=== PATIENT | female | born 1965 | race Caucasian/White ===

== ENCOUNTER → 2018-02-08 09:26 | Outpatient (CLI) | payer OTHER, SELFPAY ==
--- NOTE | 2018-02-08 09:29 | DI.MG.S_ITS ---
UNILATERAL LEFT DIGITAL DIAGNOSTIC MAMMOGRAM 3D/2D SHORT-TERM FOLLOW-UP: 02/08/2018 CLINICAL: Patient returns for a 6 month follow up of the left breast. Bilateral augmentation. Family history of breast cancer. Comparison is made to exams dated: 05/25/2017 mammogram, 10/26/2014 mammogram, and 09/13/2010 mammogram - [facility]. The tissue of the left breast is heterogeneously dense. This may lower the sensitivity of mammography. There is a stable 1.2 cm oval mass with a circumscribed margin in the left breast at 2 o'clock middle depth. No other significant masses or calcifications are seen in the breast. IMPRESSION: INCOMPLETE: NEEDS ADDITIONAL IMAGING EVALUATION The stable 1.2 cm oval mass in the left breast is indeterminate. An ultrasound is recommended. This exam was interpreted at Station ID: [id number]. NOTE: For mammograms, a report in lay terms will be sent to the patient. Approximately 15% of breast malignancies will not be visualized mammographically. In the management of a palpable breast mass, a negative mammogram must not discourage biopsy of a clinically suspicious lesion. Electronically Signed By: Shara harding/:02/08/2018 10:37:10 letter sent: Additional Imaging Needed ACR BI-RADS Category 0: Incomplete 3340F
--- NOTE | 2018-02-08 09:29 | DI.US.S_ITS ---
PROCEDURE: US BREAST LT LIMITED COMPARISON: [facility], BREAST UNILATERAL LIMITED, 05/25/2017, 9:32. INDICATIONS: 6 MO F/U FINDINGS: IMPRESSION: Dictated by: Shara Bryant M.D. on 02/08/2018 at 10:51 Approved by: Shara Bryant M.D. on 02/08/2018 at 10:53
== END ==
PROVIDERS: Family Provider Internal Medicine; PCP Internal Medicine; Visit Provider Internal Medicine
DX: R92.8 Other abnormal and inconclusive findings on diagnostic imaging of breast (principal); N63.21 Unspecified lump in the left breast, upper outer quadrant; Z98.82 Breast implant status; Z80.3 Family history of malignant neoplasm of breast
CPT/HCPCS: 76642; 77065; G0279

== ENCOUNTER → 2018-05-03 11:51 | Outpatient (CLI) | payer OTHER, SELFPAY ==
[2018-05-03 12:46] LABS: Erythrocyte Sedimentation Rate 5 MM/HR (0-20)
[2018-05-03 13:19] LABS: Alanine Aminotransferase 31 IU/L (9-52); Albumin 4.3 g/dL (3.5-5.0); Albumin Globulin Ratio 1.5 (1.0-2.8); Alkaline Phosphatase 74 U/L (38-126); Aspartate Aminotransferase 22 IU/L (14-36); BUN Creatinine Ratio 16.3 (6-22); Bilirubin Total 0.5 mg/dL (0.2-1.3); Blood Urea Nitrogen 13 mg/dL (7-17); Calcium 9.6 mg/dL (8.4-10.2); Carbon Dioxide 26 mmol/L (22-32); Chloride 104 mmol/L (98-107); Cholesterol 212 mg/dL (140-199); Estimated Glomerular Filt Rate > 60.0 mL/min (>60); Globulin 2.8 g/dL (1.7-4.1); Glucose 91 mg/dL (70-100); HDL Cholesterol 56 mg/dL (40-60); HEMOLYSIS < 15 (0-50); LDL Cholesterol Calculated 142 mg/dL (<100); Potassium 5.3 mmol/L (3.4-5.1); Sodium 143 mmol/L (137-145); Total Protein 7.1 g/dL (6.3-8.2); Triglycerides 72 mg/dL (35-150)
[2018-05-03 13:21] LABS: C-Reactive Protein Quant < 0.5 mg/dL (<1.0); Rheumatoid Factor < 8.6 IU/mL (<12.0)
[2018-05-03 13:33] LABS: Free T4, Direct Thyroxine 1.09 ng/dL (0.78-2.19)
[2018-05-03 13:47] LABS: Thyroid Stimulating Hormone 1.19 uIU/mL (0.47-4.68)
== END ==
PROVIDERS: Family Provider Internal Medicine; PCP Internal Medicine; Visit Provider Internal Medicine
DX: I10 Essential (primary) hypertension (principal); Q13.2 Other congenital malformations of iris; M25.50 Pain in unspecified joint
CPT/HCPCS: 36415; 80053; 80061; 84439; 84443; 85651; 86140; 86430

== ENCOUNTER → 2018-08-23 08:25 | Outpatient (CLI) | payer OTHER, SELFPAY ==
--- NOTE | 2018-08-23 08:26 | DI.MG.S_ITS ---
BILATERAL DIGITAL DIAGNOSTIC MAMMOGRAM 3D/2D SHORT-TERM FOLLOW-UP WITH AUGMENTATION: 08/23/2018 CLINICAL: Patient returns for a 6 month follow up of the left breast. Due for bilateral imaging. Family history of breast cancer. Comparison is made to exams dated: 02/08/2018 ultrasound, 02/08/2018 mammogram, 08/21/2017 ultrasound, 05/25/2017 ultrasound, and 05/25/2017 mammogram - [facility]. The tissue of both breasts is heterogeneously dense. This may lower the sensitivity of mammography. There is a stable 1.2 cm oval mass with a circumscribed margin in the left breast at 2 o'clock middle depth. This correlates to area of tenderness. No other significant masses, calcifications, or other findings are seen in either breast. IMPRESSION: INCOMPLETE: NEEDS ADDITIONAL IMAGING EVALUATION The stable 1.2 cm oval mass in the left breast is indeterminate. A targeted ultrasound of the left breast is recommended and will be performed immediately following this exam. The implants have a stable appearance. This exam was interpreted at Station ID: [id number]. NOTE: For mammograms, a report in lay terms will be sent to the patient. Approximately 15% of breast malignancies will not be visualized mammographically. In the management of a palpable breast mass, a negative mammogram must not discourage biopsy of a clinically suspicious lesion. Electronically Signed By: Shara harding/:08/23/2018 09:06:27 letter sent: Additional Imaging Needed ACR BI-RADS Category 0: Incomplete 3340F
--- NOTE | 2018-08-23 08:26 | DI.US.S_ITS ---
ULTRASOUND OF LEFT BREAST: 08/23/2018 CLINICAL: 6 month follow-up mass. Comparison is made to exams dated: 08/23/2018 mammogram, 02/08/2018 ultrasound, 02/08/2018 mammogram, 08/21/2017 ultrasound, 05/25/2017 ultrasound, and 05/25/2017 mammogram - [facility]. Color flow ultrasound of the left breast was performed on the areas of interest. Richardson scale images of the real-time examination were reviewed. There is a stable 1 cm x 0.8 cm x 0.5 cm oval mass with a circumscribed margin in the left breast at 2 o'clock posterior depth 4 cm from the nipple. This oval mass is hypoechoic. This correlates with mammography and ultrasound findings. IMPRESSION: PROBABLY BENIGN The stable 1 cm x 0.8 cm x 0.5 cm oval mass in the left breast likely represents a fibroadenoma and is probably benign. A follow-up ultrasound in 6 months is recommended to demonstrate stability. There is no mammographic or sonographic abnormality seen in the left breast to correspond with the pain, however, clinical followup is recommended. This exam was interpreted at Station ID: [id number]. Electronically Signed By: Shara harding/:08/23/2018 14:51:06 letter sent: Followup Recommended Ultrasound BI-RADS: 3 Probably benign
== END ==
PROVIDERS: Family Provider Internal Medicine; PCP Internal Medicine; Visit Provider Internal Medicine
DX: R92.8 Other abnormal and inconclusive findings on diagnostic imaging of breast (principal); N63.21 Unspecified lump in the left breast, upper outer quadrant; Z80.3 Family history of malignant neoplasm of breast
CPT/HCPCS: 76642; 77066; G0279

== ENCOUNTER → 2018-10-05 12:17 | Outpatient (CLI) | payer OTHER, SELFPAY ==
--- NOTE | 2018-10-05 12:18 | DI.US.S_ITS ---
PROCEDURE: US PELVIC COMPLETE INDICATIONS: POST MENOPAUSAL BLEEDING TECHNIQUE: Real-time scanning was performed of the pelvic organs, with image documentation. Additional endovaginal scanning was necessary due to incomplete visualization of the adnexal and endometrial structures by transabdominal scanning. COMPARISON: [facility], , PELVIC COMPLETE, 12/27/2015, 9:49. FINDINGS: Transabdominal scanning: Limited scanning through the kidneys shows no hydronephrosis. No pathologic free abdominal or pelvic fluid. Endovaginal scanning: Uterus: Uterus is normal in size at 3.7 x 4.4 x 5.9 cm. The endometrium measures 6.3 mm in combined thickness. Ovaries: Well seen bilaterally measuring up to 3.1 x 3.9 x 4.4 cm on the right and 1.8 x 1.5 x 1.2 cm on the left. The right ovary is mildly enlarged by a complex cystic structure measuring up to 2.9 x 3.2 x 4.3 cm. This contains low-level internal echoes IMPRESSION: The uterus appears normal as does the right ovary. There is a moderately large left ovarian complex cyst containing low-level internal echoes throughout. This structure should be further assessed for resolution in 6-8 weeks by pelvic ultrasound. It measures up to 4.3 x 2.9 x 3.2 cm in maximal dimension. No abnormal endometrial mass or fluid collection found. Dictated by: Jose L Montes De Oca M.D. on 10/05/2018 at 14:11 Approved by: Jose L Montes De Oca M.D. on 10/05/2018 at 14:14
== END ==
PROVIDERS: Family Provider Specialist; PCP Internal Medicine; Visit Provider Internal Medicine
DX: N95.0 Postmenopausal bleeding (principal); N83.292 Other ovarian cyst, left side
CPT/HCPCS: 76830; 76856

== ENCOUNTER → 2018-10-25 09:09 | Outpatient (CLI) | payer OTHER, SELFPAY ==
[2018-10-25 11:07] LABS: Cancer Antigen 125 16 U/mL (0-35)
== END ==
PROVIDERS: PCP Internal Medicine; Visit Provider Specialist
DX: N83.291 Other ovarian cyst, right side (principal)
CPT/HCPCS: 36415; 86304

== ENCOUNTER → 2019-06-20 12:07 | Outpatient (CLI) | payer OTHER, SELFPAY ==
--- NOTE | 2019-06-20 12:09 | DI.RAD.S_ITS ---
PROCEDURE: XR SACRUM COCCYX MIN 2V INDICATIONS: Acute low back and coccyx discomfort after a fall TECHNIQUE: 3 views of the sacrum and coccyx acquired. COMPARISON: [facility], XR PELVIS W LATERAL HIP RT, 11/23/2015, 10:57. [facility], CR, XR LUMBAR SPINE 2-3V, 06/20/2019, 12:12. FINDINGS: Bones: There is cortical irregularity and lucency of the distal/inferior sacrum near the sacrococcygeal junction that is suspicious for a minimally displaced fracture of the distal/inferior sacrum, with posterior displacement of the distal fracture component. This best seen on lateral view. Soft tissues: Visualized bowel gas pattern is nonobstructive. IMPRESSION: Findings suspicious for a minimally displaced fracture of the distal/inferior sacrum, near the sacrococcygeal junction. Correlation with point tenderness suggested. Consider followup radiographs versus MRI if there is continued clinical concern. Dictated by: Dannie Mason M.D. on 06/20/2019 at 18:13 Approved by: Dannie Mason M.D. on 06/20/2019 at 18:20
--- NOTE | 2019-06-20 12:09 | DI.RAD.S_ITS ---
PROCEDURE: XR LUMBAR SPINE 2-3V INDICATIONS: Acute low back and coccyx discomfort after a fall TECHNIQUE: 3 views of the lumbar spine were acquired. COMPARISON: None. FINDINGS: Bones: No fracture or focal osseous destruction. Minimal diffuse disc space narrowing. Multilevel degenerative endplate sclerosis and spurring. Diffuse facet arthropathy. Trace retrolisthesis of L1 on L2, L2 on L3 and L3 on L4. Soft tissues: Overlying bowel gas pattern is normal. No suspicious soft tissue calcifications. IMPRESSION: Mild diffuse lumbar spondylosis and facet arthropathy No fracture Dictated by: Chong Jose M.D. on 06/20/2019 at 18:01 Approved by: Chong Jose M.D. on 06/20/2019 at 18:03
== END ==
PROVIDERS: PCP Internal Medicine; Visit Provider Family Medicine
DX: M54.5 Low back pain (principal); M47.816 Spondylosis without myelopathy or radiculopathy, lumbar region; M53.3 Sacrococcygeal disorders, not elsewhere classified
CPT/HCPCS: 72100; 72220

== ENCOUNTER → 2020-01-04 13:36 | Outpatient (CLI) | payer OTHER, SELFPAY ==
--- NOTE | 2020-01-04 13:37 | DI.MG.S_ITS ---
BILATERAL DIGITAL DIAGNOSTIC MAMMOGRAM 3D/2D SHORT-TERM FOLLOW-UP WITH AUGMENTATION: 01/04/2020 CLINICAL: Patient returns for a late short term follow up of the left breast, due for bilateral imaging. Comparison is made to exams dated: 08/23/2018 mammogram, 02/08/2018 mammogram, and 05/25/2017 mammogram - [facility]. The tissue of both breasts is heterogeneously dense. This may lower the sensitivity of mammography. There is a stable 1.2 cm oval mass with a circumscribed margin in the left breast at 2 o'clock posterior depth. No other significant masses, calcifications, or other findings are seen in either breast. IMPRESSION: INCOMPLETE: NEEDS ADDITIONAL IMAGING EVALUATION The stable 1.2 cm oval mass in the left breast is indeterminate. A targeted ultrasound of the left breast is recommended and will be performed immediately following this exam. The implants have a stable appearance. This exam was interpreted at Station ID: [id number]. NOTE: For mammograms, a report in lay terms will be sent to the patient. Approximately 15% of breast malignancies will not be visualized mammographically. In the management of a palpable breast mass, a negative mammogram must not discourage biopsy of a clinically suspicious lesion. Electronically Signed By: Shara Bryant M.D. lk/:01/04/2020 14:42:25 ACR BI-RADS Category 0: Incomplete 3340F
--- NOTE | 2020-01-04 13:37 | DI.US.S_ITS ---
ULTRASOUND OF LEFT BREAST: 01/04/2020 CLINICAL: 6 month follow-up. Comparison is made to exams dated: 01/04/2020 mammogram, 08/23/2018 ultrasound, 08/23/2018 mammogram, 02/08/2018 ultrasound, 02/08/2018 mammogram, and 08/21/2017 ultrasound - [facility]. Color flow ultrasound of the left breast was performed on the areas of interest. Richardson scale images of the real-time examination were reviewed. There is a 1 cm x 0.8 cm x 0.5 cm oval mass with a circumscribed margin in the left breast at 1 o'clock posterior depth 4 cm from the nipple which has remained unchanged in size for 24 months. This oval mass is hypoechoic. This correlates with mammography and ultrasound findings. Color flow imaging demonstrates that there is an adjacent vascularity. IMPRESSION: BENIGN There is no sonographic evidence of malignancy. The stable 1 cm x 0.8 cm x 0.5 cm oval mass in the left breast likely represents a fibroadenoma and is benign. A 1 year screening mammogram is recommended. This exam was interpreted at Station ID: [id number]. Electronically Signed By: Shara harding/:01/04/2020 14:43:54 letter sent: Normal Exam Ultrasound BI-RADS: 2 Benign
== END ==
PROVIDERS: PCP Internal Medicine; Referring Provider Internal Medicine; Visit Provider Internal Medicine
DX: R92.8 Other abnormal and inconclusive findings on diagnostic imaging of breast (principal); N63.21 Unspecified lump in the left breast, upper outer quadrant; Z98.82 Breast implant status
CPT/HCPCS: 76642; 77066; G0279

== ENCOUNTER → 2020-09-26 11:09 | Outpatient (CLI) | payer OTHER, SELFPAY ==
[2020-09-26] MEDS: COVID-19 VACC #1, MRNA(MOD) 100 MCG/0.5 ML VIAL IM (11:19)
== END ==
PROVIDERS: PCP Internal Medicine; Visit Provider Internal Medicine
DX: Z23 Encounter for immunization (principal)
CPT/HCPCS: 0011A; 91301

== ENCOUNTER → 2020-10-24 11:20 | Outpatient (CLI) | payer OTHER, SELFPAY ==
[2020-10-24] MEDS: COVID-19 VACC #2, MRNA(MOD) 100 MCG/0.5 ML VIAL IM (11:27)
== END ==
PROVIDERS: PCP Internal Medicine; Visit Provider Internal Medicine
DX: Z23 Encounter for immunization (principal)
CPT/HCPCS: 0012A; 91301

== ENCOUNTER → 2021-05-13 10:57 | Outpatient (CLI) | payer OTHER, SELFPAY ==
[2021-05-13 12:09] LABS: Alanine Aminotransferase 22 IU/L (<35); Albumin 4.1 g/dL (3.5-5.0); Albumin Globulin Ratio 1.5 (1.0-2.8); Alkaline Phosphatase 94 U/L (38-126); Aspartate Aminotransferase 28 IU/L (14-36); BUN Creatinine Ratio 18.9 (6-22); Bilirubin Total 0.5 mg/dL (0.2-1.3); Blood Urea Nitrogen 17 mg/dL (7-17); Calcium 9.5 mg/dL (8.4-10.2); Carbon Dioxide 27 mmol/L (22-32); Chloride 103 mmol/L (98-107); Cholesterol 212 mg/dL (140-199); Estimated Glomerular Filt Rate > 60.0 mL/min (>60); Globulin 2.7 g/dL (1.7-4.1); Glucose 87 mg/dL (70-100); HDL Cholesterol 56 mg/dL (40-60); HEMOLYSIS < 15 (0-50); LDL Cholesterol Calculated 145 mg/dL (<100); Potassium 4.5 mmol/L (3.4-5.1); Sodium 138 mmol/L (137-145); Total Protein 6.8 g/dL (6.3-8.2); Triglycerides 57 mg/dL (35-150)
== END ==
PROVIDERS: PCP Internal Medicine; Referring Provider Internal Medicine; Visit Provider Internal Medicine
DX: I10 Essential (primary) hypertension (principal); Z13.220 Encounter for screening for lipoid disorders
CPT/HCPCS: 36415; 80053; 80061

== ENCOUNTER → 2021-06-19 10:42 | Outpatient (CLI) | payer OTHER, SELFPAY ==
--- NOTE | 2021-06-19 | DI.MG.S_ITS ---
BILATERAL DIGITAL SCREENING MAMMOGRAM 3D/2D WITH CAD WITH AUGMENTATION: 06/19/2021 CLINICAL: Patient presents for routine screening. S/P bilateral augmentation. Comparison is made to exams dated: 01/04/2020 mammogram, 08/23/2018 ultrasound, 08/23/2018 mammogram, and 02/08/2018 mammogram - [facility]. The tissue of both breasts is heterogeneously dense. This may lower the sensitivity of mammography. Current study was also evaluated with a Computer Aided Detection (CAD) system. No significant masses, calcifications, or other findings are seen in either breast. There has been no significant interval change. IMPRESSION: NEGATIVE There is no mammographic evidence of malignancy. A 1 year screening mammogram is recommended. This exam was interpreted at Station ID: [id number]. NOTE: For mammograms, a report in lay terms will be sent to the patient. Approximately 15% of breast malignancies will not be visualized mammographically. In the management of a palpable breast mass, a negative mammogram must not discourage biopsy of a clinically suspicious lesion. Electronically Signed By: Leif Alberto M.D., jr/shannan:06/19/2021 12:57:31 letter sent: Normal Exam ACR BI-RADS Category 1: Negative [id number]
== END ==
PROVIDERS: PCP Internal Medicine; Referring Provider Internal Medicine; Visit Provider Internal Medicine
DX: Z12.31 Encounter for screening mammogram for malignant neoplasm of breast (principal); Z98.82 Breast implant status
CPT/HCPCS: 77063; 77067

== ENCOUNTER → 2021-10-31 09:53 | Outpatient (CLI) | payer OTHER, SELFPAY ==
[2021-10-31 11:08] LABS: Alanine Aminotransferase 15 IU/L (<35); Albumin 4.1 g/dL (3.5-5.0); Albumin Globulin Ratio 1.3 (1.0-2.8); Alkaline Phosphatase 85 U/L (38-126); Aspartate Aminotransferase 31 IU/L (14-36); BUN Creatinine Ratio 12.3 (6-22); Bilirubin Total 0.6 mg/dL (0.2-1.3); Blood Urea Nitrogen 10 mg/dL (7-17); Calcium 8.7 mg/dL (8.4-10.2); Carbon Dioxide 25 mmol/L (22-32); Chloride 108 mmol/L (98-107); Estimated Glomerular Filt Rate > 60 mL/min (>60); Globulin 3.1 g/dL (1.7-4.1); Glucose 97 mg/dL (70-100); HEMOLYSIS < 15 (0-50); Potassium 4.4 mmol/L (3.4-5.1); Sodium 139 mmol/L (137-145); Total Protein 7.2 g/dL (6.3-8.2)
== END ==
PROVIDERS: PCP Internal Medicine; Referring Provider Internal Medicine; Visit Provider Internal Medicine
DX: R10.11 Right upper quadrant pain (principal)
CPT/HCPCS: 36415; 80053

== ENCOUNTER → 2022-02-10 16:14 | Outpatient (CLI) | payer OTHER, SELFPAY ==
--- NOTE | 2022-02-10 16:16 | DI.RAD.S_ITS ---
PROCEDURE: XR RIBS RT MIN 3V W CXR 1V INDICATIONS: eval R rib pain TECHNIQUE: 2 views of the right ribs were acquired, along with a single view chest. COMPARISON: None. FINDINGS: Surgical changes and devices: None. Bones and chest wall: No fractures or dislocations. No suspicious bony lesions. Overlying soft tissues appear unremarkable. Lungs and pleura: No pleural effusions or pneumothorax. Lungs appear clear. Mediastinum: Mediastinal contours appear normal. Heart size is normal. IMPRESSION: No obvious displaced right rib fracture is seen. No acute cardiopulmonary pathology. Dictated by: Antonio Rizvi M.D. on 02/10/2022 at 16:49 Approved by: Antonio Rizvi M.D. on 02/10/2022 at 16:49
== END ==
PROVIDERS: PCP Internal Medicine; Referring Provider Registered Nurse Diabetes Educator; Visit Provider Registered Nurse Diabetes Educator
DX: R07.81 Pleurodynia (principal)
CPT/HCPCS: 71101

== ENCOUNTER 2022-05-28 07:56 | Emergency (ER) | payer OTHER, SELFPAY ==
[2022-05-28] VITALS (11 sets, daily range): BP systolic 152–155; BP diastolic 72–75; PULSE 56–80; RESP 18; TEMP 35.7; O2SAT 91–100; BMI 29.9
--- NOTE | 2022-05-28 08:08 | ED.GENADULT ---
HPI - General Adult General Chief complaint: Abdominal Pain Stated complaint: vomiting since 3 am bloody stools Time Seen by Provider: 05/28/22 08:01 Source: patient and family Mode of arrival: Ambulatory History of Present Illness HPI narrative: Patient is a 56-year-old female who is here for evaluation of approximately 6 hours of nausea, vomiting and diarrhea. She states she is having some blood in her stool. Has generalized abdominal tenderness. Symptoms came on suddenly at 0300 hours in the morning. No fevers. No recent travel. No recent antibiotics. No one else in the family having symptoms. No prior abdominal surgeries. She has had some issues with her gallbladder in the past and is scheduled to have an ultrasound but has not had that happen yet. Has not tried anything for the symptoms prior to arrival. Related Data Home Medications Medication Instructions Recorded Confirmed aspirin 81 mg tablet,delayed 81 mg PO DAILY 05/06/21 02/10/22 release (Adult Low Dose Aspirin) Previous Rx's Medication Instructions Recorded albuterol sulfate 90 mcg/actuation 1 puff inhalation Q4-6H PRN 03/23/18 aerosol inhaler shortness of breath or wheezing #8.5 grams CMP Estradiol 25mcg Vaginal Pearls 25 mcg vaginal .COMPLEX #45 ea 07/25/21 propranolol 80 mg capsule,24 80 mg PO QDAY #180 caps 08/26/21 hr,extended release progesterone micronized 200 mg 200 mg PO BEDTIME hormone 09/25/21 capsule replacement therapy #90 caps estradiol 0.025 mg/24 hr weekly 1 patch transdermal QWEEK #12 ea 10/31/21 transdermal patch paroxetine HCl 30 mg tablet 30 mg PO DAILY #90 tabs 04/17/22 ondansetron 4 mg disintegrating 4 mg PO Q6H PRN nausea and 05/28/22 tablet vomiting #14 tabs Allergies Allergy/AdvReac Type Severity Reaction Status Date / Time No Known Drug Allergies Allergy Verified 02/10/22 15:42 Review of Systems Constitutional Constitutional: Reports system reviewed and no additional complaints, except as documented Cardiovascular Cardiovascular: Reports system reviewed and no additional complaints, except as documented Respiratory Respiratory: Reports system reviewed and no additional complaints, except as documented Gastrointestinal Gastrointestinal: Reports system reviewed and no additional complaints, except as documented Genitourinary Genitourinary: Reports system reviewed and no additional complaints, except as documented Integumentary/Breasts Skin/Breast: Reports system reviewed and no additional complaints, except as documented Hematologic/Lymphatic On Anticoagulants: No Patient History Medical History Anxiety Body mass index (BMI) of 31.0 to 31.9 in adult (04/27/17) Congenital anisocoria Essential hypertension (05/13/16) Irregular menstrual cycle Major depression in complete remission Menopausal disorder Painful menstrual periods Surgical History Anesthesia History of breast augmentation (~2007) History of shoulder surgery (~2003) Family History Father Fam hx-ischem heart disease Mother Stroke Social History Smoking Status: Former smoker Smoking Status: Former smoker Exam Initial Vital Signs Initial Vital Signs: Vital Signs Temperature 96.2 F L 05/28/22 08:03 Pulse Rate 68 05/28/22 08:03 Respiratory Rate 18 05/28/22 08:03 Blood Pressure 152/72 H 05/28/22 08:03 Pulse Oximetry 100 05/28/22 08:03 Oxygen Delivery Method 05/28/22 08:03 Const General: cooperative and No ill appearing HENMT Head: normal to inspection and normocephalic Resp Effort & Inspection: normal respiratory effort Auscultation: clear to auscultation bilaterally Cardio Rate: regular rate Rhythm: regular rhythm GI Inspection: normal to inspection Palpation: soft, No firm, No guarding and tender Skin General: no rashes or lesions noted Neuro General: patient alert, patient awake and moves all extremities Extrem General: normal to inspection and capillary refill normal Course Orders Ordered: ED Orders 05/28/22 08:09 Complete Blood Count AUTO DIFF Stat Comprehensive Metabolic Panel Stat Lipase Stat Discontinued Medications Sodium Chloride (Normal Saline 0.9%) 1,000 mls @ 1,000 mls/hr IV BOLUS ONE Stop: 05/28/22 09:02 Last Infusion: 05/28/22 09:17 Dose: 0 mls/hr Documented By: Admin: 05/28/22 08:16 Dose: 1,000 mls/hr Documented By: BARBIE Sodium Chloride (Normal Saline 0.9%) 1,000 mls @ 1,000 mls/hr IV BOLUS ONE Stop: 05/28/22 10:41 Last Infusion: 05/28/22 11:23 Dose: 0 mls/hr Documented By: BARBIE(2) Admin: 05/28/22 09:48 Dose: 1,000 mls/hr Documented By: BARBIE(2) Lorazepam (Lorazepam 2 Mg/Ml Inj) 0.5 mg IV NOW ONE Stop: 05/28/22 10:27 Last Admin: 05/28/22 10:38 Dose: 0.5 mg Documented By: BARBIE Metoclopramide HCl (Metoclopramide 10 Mg/2 Ml Inj) 10 mg IV NOW ONE Stop: 05/28/22 09:42 Last Admin: 05/28/22 09:48 Dose: 10 mg Documented By: BARBIE(2) Ondansetron HCl (Ondansetron 4 Mg/2 Ml Inj) 4 mg IV NOW ONE Stop: 05/28/22 08:04 Last Admin: 05/28/22 08:16 Dose: 4 mg Documented By: BARBIE Ondansetron HCl (Ondansetron 4 Mg/2 Ml Inj) 4 mg IV NOW ONE Stop: 05/28/22 08:46 Last Admin: 05/28/22 09:05 Dose: 4 mg Documented By: BARBIE(2) Vital Signs Vital signs: Vital Signs - 8 hr 05/28/22 08:03 05/28/22 08:09 05/28/22 08:11 Temperature 96.2 F L Pulse Rate 68 61 59 L Respiratory Rate 18 Blood Pressure 152/72 H Pulse Oximetry 100 100 100 Oxygen Delivery Method Room Air 05/28/22 08:11 05/28/22 08:30 05/28/22 09:00 Temperature Pulse Rate 56 L 59 L Respiratory Rate Blood Pressure 155/75 H Pulse Oximetry 99 100 Oxygen Delivery Method 05/28/22 09:30 05/28/22 10:00 05/28/22 10:30 Temperature Pulse Rate 80 68 63 Respiratory Rate Blood Pressure Pulse Oximetry 91 100 99 Oxygen Delivery Method 05/28/22 11:00 Temperature Pulse Rate 57 L Respiratory Rate Blood Pressure Pulse Oximetry 98 Oxygen Delivery Method Medical Decision Making Lab Data Result diagrams: 05/28/22 08:09 05/28/22 08:09 Labs: Lab Results 05/28/22 05/28/22 Range/Units 08:09 08:09 WBC 12.4 H (4.5-11.0) X10^3/uL RBC 4.36 (4.0-5.2) X10^6/uL Hgb 13.7 (12.0-16.0) g/dL Hct 41.6 (36-46) % MCV 95.4 (80-100) fL MCH 31.5 (26-34) PG MCHC 33.0 (30-36) % RDW 12.8 (11.6-14.8) % Plt Count 254 (150-400) X10^3/uL Neut % (Auto) 83.0 H (50-75) % Lymph % (Auto) 14.5 L (25-40) % Hardin % (Auto) 1.7 L (3-14) % Eos % (Auto) 0.6 L (2-4) % Baso % (Auto) 0.2 (0-2) % Neut # (Auto) 19202 H (9367-3304) /uL Lymph # (Auto) 1800 (7891-5906) /uL Hardin # (Auto) 200 (0-900) /uL Eos # (Auto) 100 (0-450) /uL Baso # (Auto) 0 (0-100) /uL Sodium 138 (137-145) mmol/L Potassium 3.8 (3.4-5.1) mmol/L Chloride 107 (98-107) mmol/L Carbon Dioxide 20 L (22-32) mmol/L BUN 15 (7-17) mg/dL Creatinine 0.84 (0.52-1.04) mg/dL Estimated GFR > 60 (>60) mL/min BUN/Creatinine Ratio 17.9 (6-22) Glucose 148 H (70-100) mg/dL Calcium 9.1 (8.4-10.2) mg/dL Total Bilirubin 0.5 (0.2-1.3) mg/dL AST 23 (14-36) IU/L ALT 16 (<35) IU/L Alkaline Phosphatase 78 (38-126) U/L Total Protein 7.2 (6.3-8.2) g/dL Albumin 4.1 (3.5-5.0) g/dL Globulin 3.1 (1.7-4.1) g/dL Albumin/Globulin Ratio 1.3 (1.0-2.8) Lipase 58 (23-300) U/L MDM Narrative Medical decision making narrative: After fluids and multiple rounds of nausea medication she reports improvement of her symptoms. She states she would like to go home. She is had no diarrhea here in the ER. Has vomited a couple times. Did not want to try any ice chips before she was discharged. Feel that we should hold on any radiologic studies for now as I have a low suspicion for acute intra-abdominal surgical issue. No indication for antibiotics. She was given return precautions. She expressed understanding and agreement. Discharge Plan Departure Patient Disposition: Home Clinical Impression: Nausea vomiting and diarrhea Instructions: Diarrhea, Nausea and Vomiting-Adult Activity Restrictions/Additional Instructions: I do recommend that you continue to take all of your medications as directed. Be sure to increase your fluid intake by drinking small amounts over longer periods of time. Nausea medication was sent to [facility] per your request. Please use it as directed as needed. Return to the emergency department for any new or worsening symptoms. Prescriptions: New ondansetron 4 mg tablet,disintegrating 4 mg PO Q6H PRN (Reason: nausea and vomiting) Qty: 14 0RF No Action albuterol sulfate 90 mcg/actuation HFA aerosol inhaler 1 puff INHALATION Q4-6H PRN (Reason: shortness of breath or wheezing) Qty: 8.5 2RF CMP Estradiol 25mcg Vaginal Pearls 25 mcg vaginal .COMPLEX Qty: 45 3RF Rx Instructions: Insert 1 aliyah vaginally at bedtime for 14 nights, then 2 times weekly. propranolol 80 mg capsule,extended release 24 hr 80 mg PO QDAY Qty: 180 1RF estradiol 0.025 mg/24 hr patch weekly 1 patch transdermal QWEEK Qty: 12 3RF paroxetine HCl 30 mg tablet 30 mg PO DAILY Qty: 90 0RF Rx Instructions: APPT DUE W/PCP PRIOR TO END OF RX/FUTURE FILLS. PLEASE CALL TO SCHEDULE APPT. THANKS 04/17/22. aspirin [Adult Low Dose Aspirin] 81 mg tablet,delayed release (DR/EC) 81 mg PO DAILY progesterone micronized 200 mg capsule 200 mg PO BEDTIME Qty: 90 3RF Referrals: Macario Miranda MD [Primary Care Provider] -
[2022-05-28] MEDS: ONDANSETRON 4 MG/2 ML INJ IV ×2 (08:16→09:05)
[2022-05-28] MEDS: SODIUM CHLORIDE 0.9% 1,000 ML 1000 ML IV ×2 (08:16→09:48)
[2022-05-28 08:21] LABS: Add Manual Diff / Slide Review NO; Basophils Absolute Auto 0 /uL (0-100); Basophils Percent Auto 0.2 % (0-2); Eosinophils Absolute Auto 100 /uL (0-450); Eosinophils Percent Auto 0.6 % (2-4); Hematocrit 41.6 % (36-46); Hemoglobin 13.7 g/dL (12.0-16.0); Lymphocytes Absolute Auto 1800 /uL (1100-4500); Lymphocytes Percent Auto 14.5 % (25-40); Mean Corpuscular Hemoglobin 31.5 PG (26-34); Mean Corpuscular Volume 95.4 fL (80-100); Monocytes Absolute Auto 200 /uL (0-900); Monocytes Percent Auto 1.7 % (3-14); Neutrophils Absolute Auto 10300 /uL (1500-7000); Platelet Count 254 X10^3/uL (150-400); Red Blood Cell Count 4.36 X10^6/uL (4.0-5.2); Red Cell Distribution Width 12.8 % (11.6-14.8); White Blood Cell Count 12.4 X10^3/uL (4.5-11.0)
[2022-05-28 08:32] LABS: Alanine Aminotransferase 16 IU/L (<35); Albumin 4.1 g/dL (3.5-5.0); Albumin Globulin Ratio 1.3 (1.0-2.8); Alkaline Phosphatase 78 U/L (38-126); Aspartate Aminotransferase 23 IU/L (14-36); BUN Creatinine Ratio 17.9 (6-22); Bilirubin Total 0.5 mg/dL (0.2-1.3); Blood Urea Nitrogen 15 mg/dL (7-17); Calcium 9.1 mg/dL (8.4-10.2); Carbon Dioxide 20 mmol/L (22-32); Chloride 107 mmol/L (98-107); Estimated Glomerular Filt Rate > 60 mL/min (>60); Globulin 3.1 g/dL (1.7-4.1); Glucose 148 mg/dL (70-100); HEMOLYSIS < 15 (0-50); Lipase 58 U/L (23-300); Potassium 3.8 mmol/L (3.4-5.1); Sodium 138 mmol/L (137-145); Total Protein 7.2 g/dL (6.3-8.2)
[2022-05-28] MEDS: METOCLOPRAMIDE 10 MG/2 ML INJ IV (09:48)
[2022-05-28] MEDS: LORazepam 2 MG/ML INJ 0.5 MG IV (10:38)
== END 2022-05-28 11:54 | disposition home or self-care (01) ==
PROVIDERS: Emergency Provider Emergency Medicine; PCP Internal Medicine
DX: R11.2 Nausea with vomiting, unspecified (principal); R19.7 Diarrhea, unspecified
CPT/HCPCS: 36415; 80053; 83690; 85025; 96361; 96374; 96375; 96376; 99284; J2060; J2405; J2765

== ENCOUNTER → 2022-06-26 13:04 | Outpatient (CLI) | payer OTHER, SELFPAY ==
--- NOTE | 2022-06-26 13:05 | DI.US.S_ITS ---
PROCEDURE: US ABDOMEN COMPLETE INDICATIONS: ruq pain TECHNIQUE: Real-time scanning was performed of the abdominal and retroperitoneal organs, with image documentation. COMPARISON: [facility], CT, CT ABD PELVIS W CON, 03/28/2017, 4:25. [facility], US, ABDOMEN COMPLETE, 10/31/2009, 8:56. FINDINGS: Liver: The liver demonstrates normal size. The liver demonstrates generalized mildly increased echogenicity. This decreases ultrasound sensitivity for detection of hepatic masses. Gallbladder: No findings of gallstones or sludge are seen. The gallbladder wall is not thickened, measuring 3 mm or less. No specific pericholecystic fluid is seen. The sonographic Jung sign is negative. Biliary ducts: Intrahepatic bile ducts are non-dilated. Extrahepatic bile duct caliber measures 2 mm. Normal is 6-7 mm or less in diameter, or 10 mm or less post-cholecystectomy. Pancreas: Visualized portions of the pancreas are sonographically normal. Spleen: Spleen is normal in size and homogeneous in echotexture. Kidneys: Kidneys are normal in size and echotexture. Right kidney measures 10.7 cm long; left kidney measures 10.7 cm long. No hydronephrosis or nephrolithiasis. No solid masses. Aorta: Visualized aorta is normal in caliber at less than 3 cm. Iliacs: Proximal common iliac arteries are normal in caliber at less than 2.5 cm. IVC: Intrahepatic inferior vena cava is patent. Miscellaneous: No free abdominal fluid. IMPRESSION: The gallbladder demonstrates a normal sonographic appearance. No biliary dilatation is seen. Mild fatty liver infiltration. Dictated by: Srinivas Garcia M.D. on 06/26/2022 at 13:09 Approved by: Srinivas Garcia M.D. on 06/26/2022 at 13:10
== END ==
PROVIDERS: PCP Internal Medicine; Referring Provider Internal Medicine; Visit Provider Internal Medicine
DX: R10.11 Right upper quadrant pain (principal); K76.0 Fatty (change of) liver, not elsewhere classified
CPT/HCPCS: 76700

== ENCOUNTER → 2022-08-13 16:03 | Outpatient (CLI) | payer OTHER, SELFPAY ==
--- NOTE | 2022-08-13 16:04 | DI.MG.S_ITS ---
BILATERAL DIGITAL SCREENING MAMMOGRAM 3D/2D WITH CAD WITH AUGMENTATION: 08/13/2022 CLINICAL: Routine screening. Family history of breast cancer. Comparison is made to exams dated: 06/19/2021 mammogram, 01/04/2020 mammogram, and 08/23/2018 mammogram - [facility]. Both breasts are heterogeneously dense, which may obscure small masses (category c / 51-75% glandular tissue). Current study was also evaluated with a Computer Aided Detection (CAD) system. Bilateral breast implants are stable. There is a stable benign mass in the left breast. No significant masses, calcifications, or other findings are seen in either breast. There has been no significant interval change. IMPRESSION: BENIGN There is no mammographic evidence of malignancy. A 1 year screening mammogram is recommended. Based on the Tyrer Cuzick model (a risk assessment model) the patient's lifetime risk is 8.6% and her 10 year risk is 2.6%. According to the ACR, ACS, and NCCN guidelines, an annual breast MRI exam along with mammogram is recommended if the patient's lifetime risk is 20% or greater. This exam was interpreted at Station ID: [id number]. NOTE: For mammograms, a report in lay terms will be sent to the patient. Approximately 15% of breast malignancies will not be visualized mammographically. In the management of a palpable breast mass, a negative mammogram must not discourage biopsy of a clinically suspicious lesion. Electronically Signed By: Juan potts/shannan:08/14/2022 11:20:33 letter sent: Normal Exam ACR BI-RADS Category 2: Benign Finding(s) 3342F
== END ==
PROVIDERS: PCP Internal Medicine; Referring Provider Internal Medicine; Visit Provider Internal Medicine
DX: Z12.31 Encounter for screening mammogram for malignant neoplasm of breast (principal); Z80.3 Family history of malignant neoplasm of breast
CPT/HCPCS: 77063; 77067

== ENCOUNTER → 2022-10-08 08:37 | Outpatient (CLI) | payer OTHER, SELFPAY ==
[2022-10-08 10:14] LABS: Alanine Aminotransferase 19 IU/L (<35); Albumin 3.8 g/dL (3.5-5.0); Albumin Globulin Ratio 1.2 (1.0-2.8); Alkaline Phosphatase 86 U/L (38-126); Aspartate Aminotransferase 27 IU/L (14-36); BUN Creatinine Ratio 13.6 (6-22); Bilirubin Total 0.8 mg/dL (0.2-1.3); Blood Urea Nitrogen 9 mg/dL (7-17); Carbon Dioxide 20 mmol/L (22-32); Chloride 107 mmol/L (98-107); Cholesterol 212 mg/dL (140-199); Estimated Glomerular Filt Rate > 60 mL/min (>60); Globulin 3.1 g/dL (1.7-4.1); Glucose 94 mg/dL (70-100); HDL Cholesterol 39 mg/dL (40-60); HEMOLYSIS < 15 (0-50); LDL Cholesterol Calculated 155 mg/dL (<100); Potassium 4.3 mmol/L (3.4-5.1); Sodium 138 mmol/L (137-145); Total Protein 6.9 g/dL (6.3-8.2); Triglycerides 92 mg/dL (35-150)
== END ==
PROVIDERS: PCP Internal Medicine; Referring Provider Internal Medicine; Visit Provider Internal Medicine
DX: I10 Essential (primary) hypertension (principal); R73.9 Hyperglycemia, unspecified; K76.0 Fatty (change of) liver, not elsewhere classified
CPT/HCPCS: 36415; 80053; 80061; 83036

== ENCOUNTER → 2022-10-15 12:49 | Outpatient (CLI) | payer OTHER, SELFPAY ==
[2022-10-15 13:32] LABS: Add Manual Diff / Slide Review NO; Basophils Absolute Auto 100 /uL (0-100); Basophils Percent Auto 0.7 % (0-2); Eosinophils Absolute Auto 400 /uL (0-450); Eosinophils Percent Auto 4.4 % (2-4); Hematocrit 39.9 % (36-46); Hemoglobin 13.4 g/dL (12.0-16.0); Lymphocytes Absolute Auto 2800 /uL (1100-4500); Mean Corpuscular HGB Conc 33.7 % (30-36); Mean Corpuscular Hemoglobin 32.5 PG (26-34); Mean Corpuscular Volume 96.6 fL (80-100); Monocytes Absolute Auto 400 /uL (0-900); Monocytes Percent Auto 4.3 % (3-14); Neutrophils Absolute Auto 5100 /uL (1500-7000); Neutrophils Percent Auto 58.6 % (50-75); Platelet Count 279 X10^3/uL (150-400); Red Blood Cell Count 4.13 X10^6/uL (4.0-5.2); Red Cell Distribution Width 13.6 % (11.6-14.8); White Blood Cell Count 8.7 X10^3/uL (4.5-11.0)
[2022-10-15 14:24] LABS: TSH w/ Reflex to FT4 0.71 uIU/mL (0.47-4.68)
[2022-10-16 06:10] LABS: x Labcorp Estim. Avg Glu (eAG) 97 mg/dL (.)
== END ==
PROVIDERS: PCP Internal Medicine; Referring Provider Internal Medicine; Visit Provider Internal Medicine
DX: R63.4 Abnormal weight loss (principal); N95.0 Postmenopausal bleeding
CPT/HCPCS: 36415; 83036; 84443; 85025

== ENCOUNTER → 2022-10-22 11:16 | Outpatient (CLI) | payer OTHER, SELFPAY ==
[2022-10-22 12:54] LABS: Collection Time Urine 24 Hours; Creatinine 24 Hour Urine 1047 mg/day (800-1800); Creatinine Urine Random 44.6 mg/dL; Total Volume Urine 2348 mL
[2022-10-28 05:12] LABS: Normetanephrine Total 183 ug/24 hr (131-612); Urine, Metanephrine 64 ug/L (Undefined); Urine, Normetanephrine 78 ug/L (Undefined)
[2022-10-28 08:07] LABS: Creatinine, 24 Urine 895 mg/24 hr (800-1800); Creatinine,Urine 38.1 mg/dL (Not Estab.); Dopamine, Ur 24hr 232 ug/24 hr (0-510); Epinephrine, U 24hr 9 ug/24 hr (0-20); Norepinephrine Ur 24hr 31 ug/24 hr (0-135)
== END ==
PROVIDERS: PCP Internal Medicine; Referring Provider Internal Medicine; Visit Provider Internal Medicine
DX: R10.11 Right upper quadrant pain (principal)
CPT/HCPCS: 82384; 82570; 83497; 83835

== ENCOUNTER → 2022-10-23 09:46 | Outpatient (CLI) | payer OTHER, SELFPAY | PROVIDERS: PCP Internal Medicine; Referring Provider Internal Medicine; Visit Provider Internal Medicine | DX: R00.0 Tachycardia, unspecified (principal) | CPT/HCPCS: 93242 ==

== ENCOUNTER → 2022-11-06 10:32 | Outpatient (CLI) | payer OTHER, SELFPAY ==
--- NOTE | 2022-11-06 10:32 | DI.CT.S_ITS ---
PROCEDURE: CT ABDOMEN PELVIS W CON INDICATIONS: right upper quadrant pain TECHNIQUE: After the administration of oral and intravenous contrast, axial sections were acquired from the lung bases to the pubic symphysis. Coronal and sagittal reformats were performed. For radiation dose reduction, the following was used: automated exposure control, adjustment of mA and/or kV according to patient size. COMPARISON:[facility], CT, CT ABD PELVIS W CON, 03/28/2017, 4:25. [facility], US, US ABDOMEN COMPLETE, 06/26/2022, 13:25. FINDINGS: Lung bases: No pleural effusion. Partially imaged breast implants. ABDOMEN: Liver: Small hypodensity redemonstrated in segment 2 too small to characterize. Gallbladder: Unremarkable. Biliary ducts: Unremarkable. Pancreas: Unremarkable. Spleen: Unremarkable. Adrenal Glands: Unremarkable. Kidneys and Ureters: No hydronephrosis. Stomach and Bowel: No bowel obstruction. Mild predominantly sigmoid colonic diverticulosis without evidence of acute diverticulitis. No evidence of acute appendicitis. Peritoneum: No abnormal intraperitoneal fluid. No free air. Ventral Wall: Small fat containing periumbilical hernia. Abdominal Nodes: No retroperitoneal or mesenteric adenopathy by size criteria. Vessels: Aorta and inferior vena cava are normal in size. PELVIS: Pelvic Organs: Unremarkable CT appearance. Bladder: Unremarkable. Pelvic Nodes: No enlarged lymph nodes. Bones: Multilevel degenerative change of the visualized spine. IMPRESSION: No acute appearing abnormality identified within the abdomen or pelvis. Dictated by: Juan Dawson M.D. on 11/06/2022 at 16:55 Approved by: Juan Dawson M.D. on 11/06/2022 at 17:05
== END ==
PROVIDERS: PCP Internal Medicine; Referring Provider Internal Medicine; Visit Provider Internal Medicine
DX: K57.90 Diverticulosis of intestine, part unspecified, without perforation or abscess without bleeding (principal); K42.9 Umbilical hernia without obstruction or gangrene; R10.11 Right upper quadrant pain
CPT/HCPCS: 74177; Q9967

== ENCOUNTER → 2022-11-28 09:13 | Outpatient (CLI) | payer OTHER, SELFPAY ==
--- NOTE | 2022-11-28 09:13 | DI.ECHO.S_ITS ---
[facility]---------+ [facility] +---------+ : : [address] : : : : [id number] : : : : Phone: [phone] Echocardiogram Report + + :Name: JOSE CHAO Study Date: 11/28/2022 Height: 65 in : :[employer] ReadingLocation: Weight: 160 lb : : Gender: Female BSA: 1.8 m2 : :: 1965 Age: 57 yrs BP: 160/93 mmHg: :Reason For Study: Tachycardia : :Ordering Physician: Ruben. : :Aleja Performed By: Carolina Brown : :Referring: ALEJA MUÑOZ R : + + Interpretation Summary The study quality was technically difficult. The ejection fraction is estimated to be 60-65%. Diastolic parameters suggest probable normal left ventricular diastolic function and normal filling pressures. The right ventricular systolic function is normal. No significant valvular abnormality. Procedure: A two-dimensional transthoracic echocardiogram with color flow and Doppler was performed. The study quality was technically difficult. There is no prior echocardiogram noted for this patient. The patient was in normal sinus rhythm during the exam. Left Ventricle: The left ventricle is normal in size. The ejection fraction is estimated to be 60-65%. Diastolic parameters suggest probable normal left ventricular diastolic function and normal filling pressures. Right Ventricle: The right ventricle is normal size. The right ventricular systolic function is normal. Atria: The left atrial size is normal. Right atrial size is normal. There is no Doppler evidence for an interatrial shunt. Mitral Valve: The mitral valve leaflets appear borderline thickened, but open well. There is no mitral valve stenosis. There is no mitral regurgitation noted. Aortic Valve: The aortic valve is trileaflet. The aortic valve opens well. There is no aortic valve stenosis. No aortic regurgitation is present. Tricuspid Valve: The tricuspid valve is normal. There is no tricuspid stenosis. There is trace tricuspid regurgitation. Pulmonic Valve: The pulmonic valve leaflets are thin and pliable; valve motion is normal. There is no pulmonic valvular stenosis. There is no pulmonic valvular regurgitation. Great Vessels: The aortic root is normal size. The ascending aorta is normal in size. The pulmonary artery is normal size. The IVC is of normal diameter and collapses greater than 50% with a sniff. This suggests a low right atrial pressure of 3 mm Hg. Pericardium/ Pleura There is no pericardial effusion. There is no pleural effusion. MMode/2D Measurements & Calculations LVIDd: 4.0 cm LVOT diam: 2.0 cm LVIDs: 2.1 cm Ao root diam: 3.0 cm FS: 47.5 % asc Aorta Diam: 3.3 cm IVSd: 1.1 cm LVPWd: 1.0 cm LV goodman. diameter/BSA (cm/m^2): 2.2 LV sys. diameter/BSA (cm/m^2): 1.2 LA A2 area: 16.3 cm2 RA long axis: 4.0 cm LA A4 area: 14.8 cm2 RA area: 9.9 cm2 LA length (vol): 5.0 cm RA vol: 20.8 ml LA vol: 41.3 ml RA : 11.6 ml/m2 LA vol index: 22.9 ml/m2 RVD1 (basal): 3.4 cm LVLs ap4: 5.7 cm LVLd ap2: 6.7 cm TAPSE_phl: 2.0 cm LVLs ap2: 5.5 cm Doppler Measurements & Calculations Ao V2 max: 122.0 cm/sec LVOT Max Farshad: 102.0 cm/sec Ao V2 mean: 78.5 cm/sec LV V1 max P.2 mmHg Ao max P.0 mmHg LV V1 VTI: 19.1 cm Ao mean P.0 mmHg DUNG(I,D): 2.8 cm2 Ao V2 VTI: 21.1 cm DUNG(V,D): 2.6 cm2 sev ratio: 0.91 DUNG indexed to BSA (cm^2/m^2): 1.6 MV E max farshad: 78.3 cm/sec PA V2 max: 94.8 cm/sec MV A max farshad: 72.9 cm/sec PA V2 mean: 62.8 cm/sec MV E/A: 1.1 PA mean P.0 mmHg Med Peak E' Farshad: 8.6 cm/sec PA pr(Accel): 19.1 mmHg E/E' med: 9.1 Lat Peak E' Farshad: 11.2 cm/sec E/E' lat: 7.0 E/e' average: 8.0 MV dec time: 0.16 sec SV(LVOT): 60.0 ml AV VR_phl: 0.84 DUNG(VTI)/BSA_phl: 1.6 Reading Physician:PM
== END ==
PROVIDERS: PCP Internal Medicine; Referring Provider Internal Medicine; Visit Provider Internal Medicine
DX: R00.0 Tachycardia, unspecified (principal); R42 Dizziness and giddiness
CPT/HCPCS: 93306

== ENCOUNTER 2023-07-04 21:44 | Observation (INO) | payer OTHER, SELFPAY ==
[2023-07-04] VITALS (15 sets, daily range): BP systolic 93–159; BP diastolic 54–92; PULSE 65–150; RESP 10–27; TEMP 36.7; O2SAT 95–99; BMI 26.6
[2023-07-04] MEDS: dilTIAZem 5 MG/ML SDV 25 MG IV ×2 (22:37→23:00)
[2023-07-04] MEDS: SODIUM CHLORIDE 0.9% 1,000 ML 1000 ML IV (22:38)
[2023-07-05] VITALS (64 sets, daily range): BP systolic 84–128; BP diastolic 49–89; PULSE 53–152; RESP 0–46; TEMP 36.5–36.8; O2SAT 94–99; BMI 26.6
--- NOTE | 2023-07-05 00:18 | ED_ITS ---
HPI - Arrhythmia/Palpitations General Chief Complaint: Arrhythmia/Palpitations Stated Complaint: A-Fib, HR 140 Time Seen by Provider: 07/04/23 21:50 Source: patient and family Mode of arrival: Ambulatory History of Present Illness HPI narrative: 57-year-old female who presents with tachycardia/palpitations noted several hours prior to arrival. Patient reports that she does not have a history of atrial fibrillation but reports intermittent palpitations and elevated heart rate that have resolved spontaneously over the last year. No other complaints or associated symptoms noted. Patient reports being in her usual state of health prior to symptom onset. Patient arrives via private vehicle. Patient is ambulatory awake, alert, in no apparent distress and maintaining her own airway. Related Data Home Medications Medication Instructions Recorded Confirmed aspirin 81 mg tablet,delayed 81 mg PO DAILY 05/06/21 10/20/22 release (Adult Low Dose Aspirin) Previous Rx's Medication Instructions Recorded paroxetine HCl 30 mg tablet 30 mg PO DAILY #90 tabs 07/16/22 propranolol 80 mg capsule,24 80 mg PO QDAY #180 caps 08/18/22 hr,extended release progesterone micronized 200 mg See Rx Instructions .Route 09/04/22 capsule .COMPLEX #90 caps clonazepam 0.5 mg tablet 0.5 mg PO BID #60 tabs 10/28/22 estradiol 0.05 mg/24 hr weekly See Rx Instructions .Route 11/03/22 transdermal patch (Climara) .COMPLEX #12 patches albuterol sulfate 90 mcg/actuation 1 puff inhalation Q4-6H PRN 03/25/23 aerosol inhaler shortness of breath or wheezing #8.5 grams Allergies Allergy/AdvReac Type Severity Reaction Status Date / Time No Known Drug Allergies Allergy Verified 10/20/22 16:00 Review of Systems Review of Systems Narrative: See HPI for pertinent positives, otherwise review of systems negative Patient History Medical History Diverticular disease of colon Menopausal disorder Anxiety Painful menstrual periods Irregular menstrual cycle Body mass index (BMI) of 31.0 to 31.9 in adult (04/27/17) Essential hypertension (05/13/16) 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 Awake, alert, lying comfortably in bed during both exam and interview and in no apparent distress HEENT:? Normocephalic, atraumatic, pupils equal and reactive to light, trachea midline, neck is supple Chest:? Normal to inspection, no crepitus, no tenderness Cardiovascular:? 2+ radial bilaterally, irregularly irregular rhythm, tachycardia Pulmonary:? Regular respirations, no respiratory distress, lungs clear to auscultation bilateral Abdomen:? Soft, nondistended Back: ?No midline spinal tenderness, normal range of motion :? Exam deferred Skin:? Warm, dry, intact, no rashes Extremities:? No deformities of bilateral upper/lower extremities, non-tender Neuro:? No focal neurological deficits, moving all 4 extremities equally, normal gait, normal speech Psych:? Normal mood, normal affect normal attention Initial Vital Signs Initial Vital Signs: Vital Signs Temperature 98.1 F 07/04/23 21:49 Pulse Rate 65 07/04/23 21:49 Respiratory Rate 16 07/04/23 21:49 Blood Pressure 159/92 H 07/04/23 21:49 Pulse Oximetry 97 07/04/23 21:49 Oxygen Delivery Method Room Air 07/04/23 21:49 Course Course Course Narrative: See MDM Orders Ordered: ED Orders 07/04/23 21:50 EKG-12 Lead Stat 07/05/23 00:01 CBC Auto Diff [Complete Blood Count AUTO DIFF] Stat CMP [Comprehensive Metabolic Panel] Stat DILTIAZEM (Diltiazem 125 Mg/125 Ml-D5w) 125 mg in 125 mls @ 5 mls/hr IV TITRATE [place]; Protocol Last Admin: 07/05/23 04:12 Dose: 5 mg/hr, 5 mls/hr Documented By: SAUNDRA Discontinued Medications Acetaminophen (Acetaminophen 325 Mg Tablet) 650 mg PO NOW ONE Stop: 07/05/23 02:10 Last Admin: 07/05/23 02:10 Dose: 650 mg Documented By: SAUNDRA Diltiazem HCl (Diltiazem 5 Mg/Ml Sdv) 25 mg IV NOW ONE Stop: 07/04/23 22:20 Last Admin: 07/04/23 22:37 Dose: 25 mg Documented By: SAUNDRA Diltiazem HCl (Diltiazem 5 Mg/Ml Sdv) 25 mg IV NOW ONE Stop: 07/04/23 22:56 Last Admin: 07/04/23 23:00 Dose: 25 mg Documented By: SAUNDRA Diltiazem HCl (Diltiazem 5 Mg/Ml Sdv) 25 mg IV NOW ONE Stop: 07/05/23 00:28 Last Admin: 07/05/23 00:39 Dose: 25 mg Documented By: SAUNDRA Diltiazem HCl (Diltiazem 30 Mg Tablet) 60 mg PO NOW ONE Stop: 07/05/23 01:01 Last Admin: 07/05/23 02:04 Dose: 60 mg Documented By: SAUNDRA Sodium Chloride (Normal Saline 0.9%) 1,000 mls @ 1,000 mls/hr IV BOLUS ONE Stop: 07/04/23 23:35 Last Infusion: 07/04/23 22:57 Dose: Infused Documented By: Admin: 07/04/23 22:38 Dose: 1,000 mls/hr Documented By: SAUNDRA Sodium Chloride (Normal Saline 0.9%) 1,000 mls @ 1,000 mls/hr IV BOLUS ONE Stop: 07/05/23 00:13 Last Infusion: 07/05/23 02:08 Dose: Infused Documented By: Admin: 07/05/23 00:39 Dose: 1,000 mls/hr Documented By: SAUNDRA Ketorolac Tromethamine (Ketorolac 30 Mg/Ml Vial) 15 mg IV NOW ONE Stop: 07/05/23 03:35 Last Admin: 07/05/23 03:38 Dose: 15 mg Documented By: SAUNDRA Rivaroxaban (Rivaroxaban 10 Mg Tablet) 20 mg PO NOW ONE Stop: 07/05/23 03:09 Last Admin: 07/05/23 03:31 Dose: 20 mg Documented By: SAUNDRA Vital Signs Vital signs: Vital Signs - 8 hr 07/04/23 21:49 07/04/23 22:07 07/04/23 22:08 Temperature 98.1 F Pulse Rate 65 115 H Respiratory Rate 16 Blood Pressure 159/92 H 130/82 Pulse Oximetry 97 98 Oxygen Delivery Method Room Air 07/04/23 22:08 07/04/23 22:22 07/04/23 22:22 Temperature Pulse Rate 90 96 H Respiratory Rate 14 Blood Pressure 103/74 Pulse Oximetry 98 95 Oxygen Delivery Method 07/04/23 22:30 07/04/23 22:30 07/04/23 22:37 Temperature Pulse Rate 99 H 150 H Respiratory Rate 19 Blood Pressure 108/66 Pulse Oximetry 96 Oxygen Delivery Method 07/04/23 22:40 07/04/23 22:40 07/04/23 22:50 Temperature Pulse Rate 92 H Respiratory Rate 18 Blood Pressure 111/59 L 112/65 Pulse Oximetry 97 Oxygen Delivery Method 07/04/23 22:50 07/04/23 23:00 07/04/23 23:00 Temperature Pulse Rate 96 H 107 H 106 H Respiratory Rate 25 H 18 Blood Pressure 112/65 Pulse Oximetry 99 96 Oxygen Delivery Method 07/04/23 23:00 07/04/23 23:10 07/04/23 23:10 Temperature Pulse Rate 73 Respiratory Rate 21 Blood Pressure 109/72 100/60 Pulse Oximetry 96 Oxygen Delivery Method 07/04/23 23:20 07/04/23 23:20 07/04/23 23:30 Temperature Pulse Rate 72 83 Respiratory Rate 14 27 H Blood Pressure 96/59 L Pulse Oximetry 96 97 Oxygen Delivery Method 07/04/23 23:31 07/04/23 23:31 07/04/23 23:46 Temperature Pulse Rate 78 Respiratory Rate 20 Blood Pressure 93/60 99/54 L Pulse Oximetry 98 Oxygen Delivery Method 07/04/23 23:46 07/04/23 23:50 07/04/23 23:50 Temperature Pulse Rate 76 78 Respiratory Rate 10 L 12 Blood Pressure 107/56 L Pulse Oximetry 97 96 Oxygen Delivery Method 07/05/23 00:00 07/05/23 00:00 07/05/23 00:10 Temperature Pulse Rate 81 Respiratory Rate 22 Blood Pressure 97/58 L 84/51 L Pulse Oximetry 96 Oxygen Delivery Method 07/05/23 00:10 07/05/23 00:21 07/05/23 00:21 Temperature Pulse Rate 90 105 H Respiratory Rate 14 12 Blood Pressure 98/62 Pulse Oximetry 97 98 Oxygen Delivery Method 07/05/23 00:30 07/05/23 00:30 07/05/23 00:39 Temperature Pulse Rate 106 H 122 H Respiratory Rate 19 Blood Pressure 108/70 108/70 Pulse Oximetry 97 Oxygen Delivery Method 07/05/23 00:40 07/05/23 00:40 07/05/23 00:42 Temperature Pulse Rate 136 H Respiratory Rate 10 L Blood Pressure 88/58 L 96/60 Pulse Oximetry 97 Oxygen Delivery Method 07/05/23 00:42 07/05/23 00:50 07/05/23 00:50 Temperature Pulse Rate 129 H 57 L Respiratory Rate 13 16 Blood Pressure 96/55 L Pulse Oximetry 98 97 Oxygen Delivery Method 07/05/23 01:00 07/05/23 01:00 07/05/23 01:15 Temperature Pulse Rate 63 71 Respiratory Rate 16 15 Blood Pressure 91/66 Pulse Oximetry 98 99 Oxygen Delivery Method 07/05/23 01:15 07/05/23 01:26 07/05/23 01:26 Temperature Pulse Rate 64 Respiratory Rate 20 Blood Pressure 103/61 107/64 Pulse Oximetry 99 Oxygen Delivery Method 07/05/23 01:30 07/05/23 01:30 07/05/23 01:40 Temperature Pulse Rate 75 Respiratory Rate 14 Blood Pressure 97/59 L 84/56 L Pulse Oximetry 99 Oxygen Delivery Method 07/05/23 01:40 07/05/23 01:43 07/05/23 01:43 Temperature Pulse Rate 79 89 Respiratory Rate 16 14 Blood Pressure 87/52 L Pulse Oximetry 97 97 Oxygen Delivery Method 07/05/23 01:50 07/05/23 01:50 07/05/23 02:00 Temperature Pulse Rate 86 90 Respiratory Rate 17 22 Blood Pressure 98/56 L Pulse Oximetry 98 98 Oxygen Delivery Method 07/05/23 02:00 07/05/23 02:04 07/05/23 02:14 Temperature Pulse Rate 124 H Respiratory Rate Blood Pressure 97/54 L 97/64 120/58 L Pulse Oximetry Oxygen Delivery Method 07/05/23 02:14 07/05/23 02:21 07/05/23 02:21 Temperature Pulse Rate 87 87 Respiratory Rate 17 16 Blood Pressure 99/56 L Pulse Oximetry 98 98 Oxygen Delivery Method 07/05/23 02:30 07/05/23 02:30 07/05/23 02:40 Temperature Pulse Rate 89 119 H Respiratory Rate 24 19 Blood Pressure 87/49 L Pulse Oximetry 99 99 Oxygen Delivery Method 07/05/23 02:40 07/05/23 02:50 07/05/23 02:50 Temperature Pulse Rate 99 H Respiratory Rate 15 Blood Pressure 97/61 96/62 Pulse Oximetry 99 Oxygen Delivery Method 07/05/23 03:00 07/05/23 03:00 07/05/23 03:10 Temperature Pulse Rate 100 H 124 H Respiratory Rate 22 11 L Blood Pressure 100/69 Pulse Oximetry 98 99 Oxygen Delivery Method 07/05/23 03:10 07/05/23 03:20 07/05/23 03:20 Temperature Pulse Rate 115 H Respiratory Rate 12 Blood Pressure 106/61 108/60 Pulse Oximetry 98 Oxygen Delivery Method 07/05/23 03:30 07/05/23 03:33 07/05/23 03:33 Temperature Pulse Rate 84 97 H Respiratory Rate 14 Blood Pressure 112/75 Pulse Oximetry 98 99 Oxygen Delivery Method 07/05/23 03:40 07/05/23 03:40 07/05/23 03:50 Temperature Pulse Rate 92 H 96 H Respiratory Rate 12 15 Blood Pressure 106/72 Pulse Oximetry 97 98 Oxygen Delivery Method 07/05/23 03:50 07/05/23 04:00 07/05/23 04:01 Temperature Pulse Rate 98 H 96 H Respiratory Rate 9 L 16 Blood Pressure 95/72 Pulse Oximetry 97 97 Oxygen Delivery Method Room Air 07/05/23 04:01 07/05/23 04:11 07/05/23 04:11 Temperature Pulse Rate 105 H Respiratory Rate 17 Blood Pressure 102/71 110/71 Pulse Oximetry 98 Oxygen Delivery Method 07/05/23 04:20 07/05/23 04:20 07/05/23 04:30 Temperature Pulse Rate 107 H 111 H Respiratory Rate 17 10 L Blood Pressure 121/89 Pulse Oximetry 97 97 Oxygen Delivery Method 07/05/23 04:31 07/05/23 04:31 07/05/23 04:40 Temperature Pulse Rate 94 H 118 H Respiratory Rate 10 L 12 Blood Pressure 128/88 Pulse Oximetry 97 96 Oxygen Delivery Method 07/05/23 04:40 07/05/23 04:50 07/05/23 04:50 Temperature Pulse Rate 123 H Respiratory Rate 20 Blood Pressure 110/69 92/53 L Pulse Oximetry 95 Oxygen Delivery Method 07/05/23 05:00 07/05/23 05:06 07/05/23 05:06 Temperature Pulse Rate 114 H 141 H Respiratory Rate 46 H 12 Blood Pressure 99/59 L Pulse Oximetry 95 97 Oxygen Delivery Method MDM - Arrhythmia/Palpitations Differential Diagnosis Differential diagnosis: Likely palpitations, anxiety, sinus tachycardia, artial fibrillation, artial flutter, supraventricular tachycardia, ventricular tachycardia and WPW Lab Data Lab results narrative: Labs within normal limits/non actionable. 07/04/23 22:00 07/04/23 22:00 Labs: Lab Results 07/04/23 Range/Units 22:00 WBC 9.7 (4.5-11.0) X10^3/uL RBC 4.50 (4.0-5.2) X10^6/uL Hgb 14.4 (12.0-16.0) g/dL Hct 43.4 (36-46) % MCV 96.5 (80-100) fL MCH 31.9 (26-34) PG MCHC 33.1 (30-36) % RDW 12.7 (11.6-14.8) % Plt Count 277 (150-400) X10^3/uL Neut % (Auto) 54.0 (50-75) % Lymph % (Auto) 37.5 (25-40) % [place] % (Auto) 3.6 (3-14) % Eos % (Auto) 4.7 H (2-4) % Baso % (Auto) 0.2 (0-2) % Neut # (Auto) 5200 (5813-7645) /uL Lymph # (Auto) 3600 (0588-3883) /uL [place] # (Auto) 400 (0-900) /uL Eos # (Auto) 500 H (0-450) /uL Baso # (Auto) 0 (0-100) /uL Sodium 140 (137-145) mmol/L Potassium 4.5 (3.4-5.1) mmol/L Chloride 109 H (98-107) mmol/L Carbon Dioxide 20 L (22-32) mmol/L BUN 14 (7-17) mg/dL Creatinine 1.01 (0.52-1.04) mg/dL Estimated GFR > 60 (>60) mL/min BUN/Creatinine Ratio 13.9 (6-22) Glucose 87 (70-100) mg/dL Calcium 9.3 (8.4-10.2) mg/dL Total Bilirubin 0.5 (0.2-1.3) mg/dL AST 34 (14-36) IU/L ALT 18 (<35) IU/L Alkaline Phosphatase 55 (38-126) U/L Total Protein 7.3 (6.3-8.2) g/dL Albumin 4.1 (3.5-5.0) g/dL Globulin 3.2 (1.7-4.1) g/dL Albumin/Globulin Ratio 1.3 (1.0-2.8) ECG Data Interpretation: 07/04/2023 at 9:53 p.m. -atrial fibrillation with a rapid ventricular rate 149 beats per minute, normal axis, baseline wander, abnormal EKG MDM Narrative Medical decision making narrative: Patient presents with palpitations and history intermittent/self resolving palpitations/tachycardia in the past. Atrial fibrillation with rapid ventricular rate seen on monitor and EKG. Patient denies chest pain. Cardizem 25 mg bolus given with appropriate rate control. Atrial fibrillation remains. Two subsequent boluses of Cardizem given with final transitioned to oral Cardizem 60 mg PO. IV fluids given to sustain blood pressure during bolus administration. Patient reporting headache and request for Tylenol. Rate steadily rising despite boluses and p.o. Cardizem. Patient requesting ibuprofen for headache patient given Toradol with improvement in symptoms patient was also hoping that heart rate will go down after Toradol administration. Patient stable but warrants IV Cardizem gtt for rate control. Patient not cardioverted here in the emergency department due to reported history did sounds as if the patient has been experiencing paroxysmal atrial fibrillation in the past. Xarelto 20 mg p.o. given. Discussed case with admitting provider inpatient warrants ICU observation. Patient is stable at the time of transfer to the ICU here at [facility] Discharge Plan Departure Patient Disposition: Admitted as Observation Clinical Impression: Atrial fibrillation with rapid ventricular response Admit Date/Time: 07/05/23 05:22
[2023-07-05] MEDS: dilTIAZem 5 MG/ML SDV 25 MG IV (00:39)
[2023-07-05] MEDS: SODIUM CHLORIDE 0.9% 1,000 ML 1000 ML IV (00:39)
[2023-07-05] MEDS: dilTIAZem 30 MG TABLET 60 MG PO (02:04)
[2023-07-05] MEDS: ACETAMINOPHEN 325 MG TABLET 650 MG PO (02:10)
[2023-07-05] MEDS: RIVAROXABAN 10 MG TABLET 20 MG PO (03:31)
[2023-07-05] MEDS: KETOROLAC 30 MG/ML VIAL 15 MG IV (03:38)
[2023-07-05 03:59] LABS: Add Manual Diff / Slide Review NO; Basophils Absolute Auto 0 /uL (0-100); Basophils Percent Auto 0.2 % (0-2); Eosinophils Absolute Auto 500 /uL (0-450); Eosinophils Percent Auto 4.7 % (2-4); Hematocrit 43.4 % (36-46); Hemoglobin 14.4 g/dL (12.0-16.0); Lymphocytes Absolute Auto 3600 /uL (1100-4500); Lymphocytes Percent Auto 37.5 % (25-40); Mean Corpuscular HGB Conc 33.1 % (30-36); Mean Corpuscular Hemoglobin 31.9 PG (26-34); Mean Corpuscular Volume 96.5 fL (80-100); Monocytes Absolute Auto 400 /uL (0-900); Monocytes Percent Auto 3.6 % (3-14); Neutrophils Absolute Auto 5200 /uL (1500-7000); Platelet Count 277 X10^3/uL (150-400); Red Cell Distribution Width 12.7 % (11.6-14.8); White Blood Cell Count 9.7 X10^3/uL (4.5-11.0)
[2023-07-05 04:03] LABS: Alanine Aminotransferase 18 IU/L (<35); Albumin 4.1 g/dL (3.5-5.0); Albumin Globulin Ratio 1.3 (1.0-2.8); Alkaline Phosphatase 55 U/L (38-126); Aspartate Aminotransferase 34 IU/L (14-36); BUN Creatinine Ratio 13.9 (6-22); Bilirubin Total 0.5 mg/dL (0.2-1.3); Blood Urea Nitrogen 14 mg/dL (7-17); Calcium 9.3 mg/dL (8.4-10.2); Carbon Dioxide 20 mmol/L (22-32); Chloride 109 mmol/L (98-107); Estimated Glomerular Filt Rate > 60 mL/min (>60); Globulin 3.2 g/dL (1.7-4.1); Glucose 87 mg/dL (70-100); HEMOLYSIS 30 (0-50); Potassium 4.5 mmol/L (3.4-5.1); Sodium 140 mmol/L (137-145); Total Protein 7.3 g/dL (6.3-8.2)
[2023-07-05] MEDS: DILTIAZEM 125 MG/125 ML PIGGYBACK IV (04:12)
--- NOTE | 2023-07-05 08:46 | CM.DANOTE ---
Patient is a 57 yo female who was admitted on 07/05/23 for AFIB and HR issues. Pt has [employer] for insurance and her PCP is Dr. Macario Miranda. EMR was reviewed. Per MD, pt with new AFIB symptoms not converting and brought to the ICU and after Battery Charger Tester Consult the recommendation is transfer to higher level of care for DOLLY. community development specialist working on hospital transfer to [facility] for Cardiology. Per RN, pt is independent and active in the room and has supportive spouse bedside. Pt and spouse live in [place] and have local adult Dtr and pt works as an OB RN at [employer] and drives. No hx of admits to [facility]. Plan: SW to follow for plan of hospital transfer for higher level of Cardio needs. DARION Vieira
[2023-07-05 09:49] LABS: MRSA (Nasal) PCR Not Detected (Not Detect)
--- NOTE | 2023-07-05 10:06 | PM.HP.1 ---
History of Present Illness History of Present Illness Date Patient Seen: 07/05/23 Time Patient Seen: 08:15 Date of Onset of Symptoms: 07/04/23 Chief complaint: A-Fib, HR 140 Narrative: Patient presented last even with symptoms of heart racing and palpitations after eating a smoothie. She reports similar intermittent symptoms ongoing for the past 8-12 months. She reports illness in May 2022 and then feeling unwell for the next 3-6 months with 30 lb weight loss. She has been on propranolol for past 5 years for hypertension. She was prescribed anti-anxiety medication for palpitations and eventually referred to cardiology. She had an echo and wore a Zio patch. Results not available but she reports all normal. Her propranolol was switched from extended release to three times daily by cardiology. She had decrease in episodes of palpitations and has been doing okay since propranlol readjustment a few months ago. Last night she had a cold smoothie and then noticed symptoms of palpitations and that her heart was racing. She has an apple watch and heart rate was in the 140s and irregular. She tried to vomit to see if this would help symptoms but it did not. She previously worked as a labor and delivery nurse. She recognized that her pulse was irregular and that she was not anticoagulated so came in for evaluation. She is additionally complaining of headache and sinus pressure that has been ongoing for the past 2 weeks following a cold. Other medical history and medications include paxil for depression, estrogen patch and progesterone PO for HRT, prn albuterol inhaler for asthma and clonazepam PRN for anxiety. 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 Surgical History Anesthesia History of shoulder surgery (~2003) History of breast augmentation (~2007) Family History Father Fam hx-ischem heart disease Mother Stroke Social History household members: spouse and family Smoking Status: Former smoker alcohol intake: current Meds Home Medications and Allergies Home Medications Medication Instructions Recorded Confirmed Type aspirin 81 mg tablet,delayed 81 mg PO DAILY 05/06/21 07/05/23 History release (Adult Low Dose Aspirin) paroxetine HCl 30 mg tablet 30 mg PO DAILY #90 tabs 07/16/22 07/05/23 Rx propranolol 80 mg capsule,24 80 mg PO QDAY #180 caps 08/18/22 07/05/23 Rx hr,extended release progesterone micronized 200 mg See Rx Instructions .Route 09/04/22 07/05/23 Rx capsule .COMPLEX #90 caps clonazepam 0.5 mg tablet 0.5 mg PO BID #60 tabs 10/28/22 07/05/23 Rx estradiol 0.05 mg/24 hr weekly See Rx Instructions .Route 11/03/22 07/05/23 Rx transdermal patch (Climara) .COMPLEX #12 patches albuterol sulfate 90 mcg/actuation 1 puff inhalation Q4-6H PRN 03/25/23 07/05/23 Rx aerosol inhaler shortness of breath or wheezing #8.5 grams amoxicillin 875 mg-potassium 1 tab PO BID #14 tabs 07/05/23 Rx clavulanate 125 mg tablet Allergies Allergy/AdvReac Type Severity Reaction Status Date / Time No Known Drug Allergies Allergy Verified 10/20/22 16:00 Review of Systems Review of Systems Narrative: as per HPI Exam Vital Signs (past 8 hours): - 07/05/23 02:14 07/05/23 02:14 07/05/23 02:21 Temperature Pulse Rate 87 87 Respiratory Rate 17 16 Blood Pressure 120/58 L Pulse Oximetry 98 98 Oxygen Delivery Method Oxygen Flow Rate 07/05/23 02:21 07/05/23 02:30 07/05/23 02:30 Temperature Pulse Rate 89 Respiratory Rate 24 Blood Pressure 99/56 L 87/49 L Pulse Oximetry 99 Oxygen Delivery Method Oxygen Flow Rate 07/05/23 02:40 07/05/23 02:40 07/05/23 02:50 Temperature Pulse Rate 119 H Respiratory Rate 19 Blood Pressure 97/61 96/62 Pulse Oximetry 99 Oxygen Delivery Method Oxygen Flow Rate 07/05/23 02:50 07/05/23 03:00 07/05/23 03:00 Temperature Pulse Rate 99 H 100 H Respiratory Rate 15 22 Blood Pressure 100/69 Pulse Oximetry 99 98 Oxygen Delivery Method Oxygen Flow Rate 07/05/23 03:10 07/05/23 03:10 07/05/23 03:20 Temperature Pulse Rate 124 H Respiratory Rate 11 L Blood Pressure 106/61 108/60 Pulse Oximetry 99 Oxygen Delivery Method Oxygen Flow Rate 07/05/23 03:20 07/05/23 03:30 07/05/23 03:33 Temperature Pulse Rate 115 H 84 97 H Respiratory Rate 12 14 Blood Pressure Pulse Oximetry 98 98 99 Oxygen Delivery Method Oxygen Flow Rate 07/05/23 03:33 07/05/23 03:40 07/05/23 03:40 Temperature Pulse Rate 92 H Respiratory Rate 12 Blood Pressure 112/75 106/72 Pulse Oximetry 97 Oxygen Delivery Method Oxygen Flow Rate 07/05/23 03:50 07/05/23 03:50 07/05/23 04:00 Temperature Pulse Rate 96 H 98 H Respiratory Rate 15 9 L Blood Pressure 95/72 Pulse Oximetry 98 97 Oxygen Delivery Method Room Air Oxygen Flow Rate 07/05/23 04:01 07/05/23 04:01 07/05/23 04:11 Temperature Pulse Rate 96 H 105 H Respiratory Rate 16 17 Blood Pressure 102/71 Pulse Oximetry 97 98 Oxygen Delivery Method Oxygen Flow Rate 07/05/23 04:11 07/05/23 04:20 07/05/23 04:20 Temperature Pulse Rate 107 H Respiratory Rate 17 Blood Pressure 110/71 121/89 Pulse Oximetry 97 Oxygen Delivery Method Oxygen Flow Rate 07/05/23 04:30 07/05/23 04:31 07/05/23 04:31 Temperature Pulse Rate 111 H 94 H Respiratory Rate 10 L 10 L Blood Pressure 128/88 Pulse Oximetry 97 97 Oxygen Delivery Method Oxygen Flow Rate 07/05/23 04:40 07/05/23 04:40 07/05/23 04:50 Temperature Pulse Rate 118 H 123 H Respiratory Rate 12 20 Blood Pressure 110/69 Pulse Oximetry 96 95 Oxygen Delivery Method Oxygen Flow Rate 07/05/23 04:50 07/05/23 05:00 07/05/23 05:06 Temperature Pulse Rate 114 H 141 H Respiratory Rate 46 H 12 Blood Pressure 92/53 L Pulse Oximetry 95 97 Oxygen Delivery Method Oxygen Flow Rate 07/05/23 05:06 07/05/23 05:10 07/05/23 05:10 Temperature Pulse Rate 138 H Respiratory Rate 0 L Blood Pressure 99/59 L 107/66 Pulse Oximetry 97 Oxygen Delivery Method Oxygen Flow Rate 07/05/23 05:20 07/05/23 05:20 07/05/23 05:46 Temperature 98.0 F Pulse Rate 115 H 110 H Respiratory Rate 0 L 16 Blood Pressure 90/75 118/77 Pulse Oximetry 96 98 Oxygen Delivery Method Oxygen Flow Rate 0 07/05/23 06:09 07/05/23 08:00 07/05/23 09:28 Temperature 97.7 F Pulse Rate 53 L Respiratory Rate 16 Blood Pressure 118/77 Pulse Oximetry 96 Oxygen Delivery Method Room Air Room Air Oxygen Flow Rate Oxygen Delivery Method Room Air Oxygen Flow Rate 0 Const General: cooperative, healthy appearing, comfortable and diaphoretic Orientation: alert, awake and oriented x3 HENMT Head: normal to inspection Eyes General: appearance normal, both eyes and all related structures Neck Neck: normal visual inspection Resp Effort & Inspection: normal respiratory effort and able to speak in complete sentences Cardio Heart Sounds: S1 normal and S2 normal Other: Irregular rate noted Psych Appearance: grossly normal Mental Status: mental status grossly normal Speech and Movement: speech and movement normal Mood: congruent mood Affect: normal affect Attitude: cooperative Thought Process: normal Thought Content: normal Judgment: judgment good Objective Labs 07/04/23 22:00 07/04/23 22:00 Labs: Laboratory Results - last 24 hr 07/04/23 07/05/23 22:00 06:00 WBC 9.7 RBC 4.50 Hgb 14.4 Hct 43.4 MCV 96.5 MCH 31.9 MCHC 33.1 RDW 12.7 Plt Count 277 Neut % (Auto) 54.0 Lymph % (Auto) 37.5 [place] % (Auto) 3.6 Eos % (Auto) 4.7 H Baso % (Auto) 0.2 Neut # (Auto) 5200 Lymph # (Auto) 3600 [place] # (Auto) 400 Eos # (Auto) 500 H Baso # (Auto) 0 Sodium 140 Potassium 4.5 Chloride 109 H Carbon Dioxide 20 L BUN 14 Creatinine 1.01 Estimated GFR > 60 BUN/Creatinine Ratio 13.9 Glucose 87 Calcium 9.3 Total Bilirubin 0.5 AST 34 ALT 18 Alkaline Phosphatase 55 Total Protein 7.3 Albumin 4.1 Globulin 3.2 Albumin/Globulin Ratio 1.3 Nasal Screen MRSA (PCR) Not detected Assessment & Plan Assessment and plan (1) Atrial fibrillation with rapid ventricular response: Status: Acute (2) Acute sinusitis: Qualifiers: Sinusitis location: frontal Recurrence: non-recurrent Qualified Code(s): J01.10 - Acute frontal sinusitis, unspecified Status: Acute Plan 1. Atrial fibrillation with rapid ventricular response. DX with EKG and monitoring. Patient received diltiazem IV 25 mg x 3 and was given oral diltiazem 60 mg. Per ED note, patient had appropriate rate control initially however heart rate continued to rise. She was started on diltiazem drip at 5mg per hr. She was given xarelto 20 mg PO and admitted to the ICU. When I saw patient at 8am she was ranging from 110-160 HR and on physical exam she remained with an irregular rhythm. We increased her diltiazem drip to 10 mg. I discussed her case with [facility] Administrative Assistant travel services professional Dr. Meehan who felt transfer to [facility] for TTE and cardioversion was warranted. Transfer process initiated with charge nurse. -transfer to higher level of care for TTE with cardioversion 2. Acute Sinusitis -start augmentin x 7 days Time Spent With Patient Time with patient: 70 minutes or more, with 50% spent counseling/coordinating
--- NOTE | 2023-07-05 10:24 | PM.DS.1 ---
History of Present Illness History of Present Illness Date Patient Seen: 07/05/23 Time Patient Seen: 08:15 Date of Onset of Symptoms: 07/04/23 Chief complaint: A-Fib, HR 140 Narrative: Patient presented last even with symptoms of heart racing and palpitations after eating a smoothie. She reports similar intermittent symptoms ongoing for the past 8-12 months. She reports illness in May 2022 and then feeling unwell for the next 3-6 months with 30 lb weight loss. She has been on propranolol for past 5 years for hypertension. She was prescribed anti-anxiety medication for palpitations and eventually referred to cardiology. She had an echo and wore a Zio patch. Results not available but she reports all normal. Her propranolol was switched from extended release to three times daily by cardiology. She had decrease in episodes of palpitations and has been doing okay since propranlol readjustment a few months ago. Last night she had a cold smoothie and then noticed symptoms of palpitations and that her heart was racing. She has an apple watch and heart rate was in the 140s and irregular. She tried to vomit to see if this would help symptoms but it did not. She previously worked as a labor and delivery nurse. She recognized that her pulse was irregular and that she was not anticoagulated so came in for evaluation. She is additionally complaining of headache and sinus pressure that has been ongoing for the past 2 weeks following a cold. Other medical history and medications include paxil for depression, estrogen patch and progesterone PO for HRT, prn albuterol inhaler for asthma and clonazepam PRN for anxiety. Discharge Providers Provider Date of admission: 07/05/23 05:22 Discharge Date: 07/05/23 Primary care physician: Macario Miranda MD Discharge provider: Carolina Bradley MD Summary Hospital Course Discharge Diagnosis: atrial fibrillation with RVR Hospital Course: Patient presented to ED with atrial fibrillation with RVR. Diagnosis with EKG and monitoring. Patient received diltiazem IV 25 mg x 3 and was given oral diltiazem 60 mg. Per ED note, patient had appropriate rate control initially however heart rate continued to rise. She was started on diltiazem drip at 5mg per hr. She was given xarelto 20 mg PO and admitted to the ICU. When I saw patient at 8am she was ranging from 110-160 HR and on physical exam she remained with an irregular rhythm. We increased her diltiazem drip to 10 mg. I discussed her case with [facility] Certified Peer Specialist manager relationship Dr. Meehan who felt transfer to [facility] for TTE and cardioversion was warranted. Transfer process initiated with charge nurse. Status at Discharge Cognitive/behavioral status at discharge: oriented Functional status at discharge: independent ambulation Overall status at discharge: other Time Spent with Patient Time spent: Greater than 30 minutes Exam Vital Signs (past 8 hours): - 07/05/23 02:30 07/05/23 02:30 07/05/23 02:40 Temperature Pulse Rate 89 119 H Respiratory Rate 24 19 Blood Pressure 87/49 L Pulse Oximetry 99 99 Oxygen Delivery Method Oxygen Flow Rate 07/05/23 02:40 07/05/23 02:50 07/05/23 02:50 Temperature Pulse Rate 99 H Respiratory Rate 15 Blood Pressure 97/61 96/62 Pulse Oximetry 99 Oxygen Delivery Method Oxygen Flow Rate 07/05/23 03:00 07/05/23 03:00 07/05/23 03:10 Temperature Pulse Rate 100 H 124 H Respiratory Rate 22 11 L Blood Pressure 100/69 Pulse Oximetry 98 99 Oxygen Delivery Method Oxygen Flow Rate 07/05/23 03:10 07/05/23 03:20 07/05/23 03:20 Temperature Pulse Rate 115 H Respiratory Rate 12 Blood Pressure 106/61 108/60 Pulse Oximetry 98 Oxygen Delivery Method Oxygen Flow Rate 07/05/23 03:30 07/05/23 03:33 07/05/23 03:33 Temperature Pulse Rate 84 97 H Respiratory Rate 14 Blood Pressure 112/75 Pulse Oximetry 98 99 Oxygen Delivery Method Oxygen Flow Rate 07/05/23 03:40 07/05/23 03:40 07/05/23 03:50 Temperature Pulse Rate 92 H 96 H Respiratory Rate 12 15 Blood Pressure 106/72 Pulse Oximetry 97 98 Oxygen Delivery Method Oxygen Flow Rate 07/05/23 03:50 07/05/23 04:00 07/05/23 04:01 Temperature Pulse Rate 98 H 96 H Respiratory Rate 9 L 16 Blood Pressure 95/72 Pulse Oximetry 97 97 Oxygen Delivery Method Room Air Oxygen Flow Rate 07/05/23 04:01 07/05/23 04:11 07/05/23 04:11 Temperature Pulse Rate 105 H Respiratory Rate 17 Blood Pressure 102/71 110/71 Pulse Oximetry 98 Oxygen Delivery Method Oxygen Flow Rate 07/05/23 04:20 07/05/23 04:20 07/05/23 04:30 Temperature Pulse Rate 107 H 111 H Respiratory Rate 17 10 L Blood Pressure 121/89 Pulse Oximetry 97 97 Oxygen Delivery Method Oxygen Flow Rate 07/05/23 04:31 07/05/23 04:31 07/05/23 04:40 Temperature Pulse Rate 94 H 118 H Respiratory Rate 10 L 12 Blood Pressure 128/88 Pulse Oximetry 97 96 Oxygen Delivery Method Oxygen Flow Rate 07/05/23 04:40 07/05/23 04:50 07/05/23 04:50 Temperature Pulse Rate 123 H Respiratory Rate 20 Blood Pressure 110/69 92/53 L Pulse Oximetry 95 Oxygen Delivery Method Oxygen Flow Rate 07/05/23 05:00 07/05/23 05:06 07/05/23 05:06 Temperature Pulse Rate 114 H 141 H Respiratory Rate 46 H 12 Blood Pressure 99/59 L Pulse Oximetry 95 97 Oxygen Delivery Method Oxygen Flow Rate 07/05/23 05:10 07/05/23 05:10 07/05/23 05:20 Temperature Pulse Rate 138 H 115 H Respiratory Rate 0 L 0 L Blood Pressure 107/66 Pulse Oximetry 97 96 Oxygen Delivery Method Oxygen Flow Rate 07/05/23 05:20 07/05/23 05:46 07/05/23 06:09 Temperature 98.0 F Pulse Rate 110 H Respiratory Rate 16 Blood Pressure 90/75 118/77 Pulse Oximetry 98 Oxygen Delivery Method Room Air Oxygen Flow Rate 0 07/05/23 08:00 07/05/23 09:28 Temperature 97.7 F Pulse Rate 53 L Respiratory Rate 16 Blood Pressure 118/77 Pulse Oximetry 96 Oxygen Delivery Method Room Air Oxygen Flow Rate Oxygen Delivery Method Room Air Oxygen Flow Rate 0 Const General: cooperative, healthy appearing, comfortable and diaphoretic Orientation: alert, awake and oriented x3 HENMT Head: normal to inspection Eyes General: appearance normal, both eyes and all related structures Neck Neck: normal visual inspection Resp Effort & Inspection: normal respiratory effort and able to speak in complete sentences Cardio Heart Sounds: S1 normal and S2 normal Other: Irregular rate noted Psych Appearance: grossly normal Mental Status: mental status grossly normal Speech and Movement: speech and movement normal Mood: congruent mood Affect: normal affect Attitude: cooperative Thought Process: normal Thought Content: normal Judgment: judgment good Objective Labs 07/04/23 22:00 07/04/23 22:00 Labs: Laboratory Results - last 24 hr 07/04/23 07/05/23 22:00 06:00 WBC 9.7 RBC 4.50 Hgb 14.4 Hct 43.4 MCV 96.5 MCH 31.9 MCHC 33.1 RDW 12.7 Plt Count 277 Neut % (Auto) 54.0 Lymph % (Auto) 37.5 [place] % (Auto) 3.6 Eos % (Auto) 4.7 H Baso % (Auto) 0.2 Neut # (Auto) 5200 Lymph # (Auto) 3600 [place] # (Auto) 400 Eos # (Auto) 500 H Baso # (Auto) 0 Sodium 140 Potassium 4.5 Chloride 109 H Carbon Dioxide 20 L BUN 14 Creatinine 1.01 Estimated GFR > 60 BUN/Creatinine Ratio 13.9 Glucose 87 Calcium 9.3 Total Bilirubin 0.5 AST 34 ALT 18 Alkaline Phosphatase 55 Total Protein 7.3 Albumin 4.1 Globulin 3.2 Albumin/Globulin Ratio 1.3 Nasal Screen MRSA (PCR) Not detected [facility] Medical History Diverticular disease of colon Menopausal disorder Anxiety Painful menstrual periods Irregular menstrual cycle Body mass index (BMI) of 31.0 to 31.9 in adult (04/27/17) Essential hypertension (05/13/16) 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 Discharge Plan Discharge Plan Patient Disposition: [facility] Other facility: [facility] Under care of provider: Dr. Meehan Visit Report/Discharge Packet Instructions: DI for Pancreatitis Stand Alone Forms: Patient Portal/API Discharge Data Primary Care Provider: Macario Miranda Discharges patient from system. Discharge Date/Time: 07/05/23 10:32
[2023-07-05] MEDS: DILTIAZEM 125 MG/125 ML PIGGYBACK 10 MG IV (15:27)
[2023-07-05] MEDS: METOPROLOL IR 25 MG TABLET PO (17:27)
== END 2023-07-05 20:28 | disposition short-term general hospital (02) ==
LOC: ED 07-05 05:09 → ICU 07-05 10:29 → AC 07-06 09:02 → ICU 07-06 09:02
PROVIDERS: Admitting Provider Student in an Organized Health Care Education/Training Program; Emergency Provider Emergency Medicine; PCP Internal Medicine; Referring Provider Emergency Medicine; Visit Provider Student in an Organized Health Care Education/Training Program
DX: I48.91 Unspecified atrial fibrillation (principal); J01.90 Acute sinusitis, unspecified; I10 Essential (primary) hypertension; F41.9 Anxiety disorder, unspecified; F32.A Depression, unspecified; J45.909 Unspecified asthma, uncomplicated; J01.10 Acute frontal sinusitis, unspecified
CPT/HCPCS: 36415; 80053; 85025; 87797; 93005; 93010; 96361; 96365; 96366; 96375; 96376; 99284; 99285; 99291; 99292; G0378; J1885

== ENCOUNTER → 2023-07-09 16:01 | Outpatient (CLI) | payer OTHER, SELFPAY ==
[2023-07-05 06:09] VITALS: BMI 26.6
[2023-07-09 17:23] LABS: Alanine Aminotransferase 35 IU/L (<35); Albumin 3.7 g/dL (3.5-5.0); Albumin Globulin Ratio 1.3 (1.0-2.8); Alkaline Phosphatase 56 U/L (38-126); Aspartate Aminotransferase 26 IU/L (14-36); BUN Creatinine Ratio 23.2 (6-22); Bilirubin Total 0.5 mg/dL (0.2-1.3); Blood Urea Nitrogen 19 mg/dL (7-17); Calcium 8.9 mg/dL (8.4-10.2); Carbon Dioxide 26 mmol/L (22-32); Chloride 103 mmol/L (98-107); Estimated Glomerular Filt Rate > 60 mL/min (>60); Globulin 2.9 g/dL (1.7-4.1); Glucose 82 mg/dL (70-100); HEMOLYSIS < 15 (0-50); Potassium 4.3 mmol/L (3.4-5.1); Sodium 135 mmol/L (137-145); Total Protein 6.6 g/dL (6.3-8.2)
[2023-07-09 20:26] LABS: Free T4, Direct Thyroxine 1.15 ng/dL (0.78-2.19)
[2023-07-09 20:39] LABS: Thyroid Stimulating Hormone 0.753 uIU/mL (0.47-4.68)
== END ==
LOC: LAB 16:02
PROVIDERS: PCP Internal Medicine; Referring Provider Internal Medicine Cardiovascular Disease; Visit Provider Internal Medicine Cardiovascular Disease
DX: I48.0 Paroxysmal atrial fibrillation (principal)
CPT/HCPCS: 36415; 80053; 84439; 84443

== ENCOUNTER → 2023-07-29 15:15 | Outpatient (CLI) | payer OTHER, SELFPAY ==
[2023-07-05 06:09] VITALS: BMI 26.6
--- NOTE | 2023-07-29 15:16 | DI.US.S_ITS ---
PROCEDURE: US PELVIC COMPLETE INDICATIONS: post menopausal bleeding TECHNIQUE: Real-time scanning was performed of the pelvic organs, with image documentation. Additional endovaginal scanning was necessary due to incomplete visualization of the adnexal and endometrial structures by transabdominal scanning. COMPARISON: [facility], US, US PELVIC COMPLETE, 09/25/2021, 11:47. FINDINGS: Uterus: Uterus is retroverted and normal in size at 5.9 x 5.0 x 4.1 cm. The myometrium is heterogeneous. The endometrium measures 3 mm combined thickness. Atrophic endometrial echo complex. Ovaries: The right ovary measures 4.1 x 1.9 x 2.3 cm, with a calculated ovarian volume of 9 cc. Complex right ovarian mass with microcalcifications measuring 1.8 x 2.6 x 2.0 cm, without vascularity. The left ovary measures 1.4 x 2.3 x 1.9 cm, with a calculated ovarian volume of 3 cc. Less than 12 follicles can be seen in each ovary. Other: No pathologic free abdominal or pelvic fluid. IMPRESSION: The endometrium is normal in thickness at 3 mm. Complex right ovarian mass with microcalcifications measuring 2.6 cm. Recommend gynecology consult and short-term follow-up ultrasound in 6-12 weeks. We strive to produce accurate, complete, and clear reports of imaging services. To assist us in improving patient care, this report was composed using standard report templates and voice recognition software. Therefore, it may contain abnormal punctuation, insertions and/or omissions. Occasional wrong-word or sound-alike substitutions may occur. Though we review the report and make efforts to correct it, we do recommend that the report be read carefully in proper context to recognize any text inaccuracies. Dictated by: Levy Robledo M.D. on 07/29/2023 at 16:33 Approved by: Levy Robledo M.D. on 07/29/2023 at 16:36
== END ==
PROVIDERS: PCP Internal Medicine; Referring Provider Internal Medicine; Visit Provider Internal Medicine
DX: N95.0 Postmenopausal bleeding (principal); N83.9 Noninflammatory disorder of ovary, fallopian tube and broad ligament, unspecified
CPT/HCPCS: 76830; 76856; 93975

== ENCOUNTER → 2023-08-13 15:13 | Outpatient (CLI) | payer OTHER, SELFPAY ==
[2023-07-05 06:09] VITALS: BMI 26.6
--- NOTE | 2023-08-13 | DI.NM.S_ITS ---
PROCEDURE: NM EXERCISE TREADMILL NON NUC COMPARISON: None. INDICATIONS: Tachycardia, unspecified FINDINGS: The patient exercised for 7 minutes and 16 seconds reaching 92% of maximum predicted heart rate. Appropriate BP response to exercise. No diagnostic ST changes and no angina during exercise or recovery. IMPRESSION: Low risk, normal treadmill ECG only stress test with average exercise tolerance (LESLI -2%). Dictated by: Estiven Marquez MD on 08/14/2023 at 15:55 Approved by: Estiven Marquez MD on 08/14/2023 at 15:57
== END ==
PROVIDERS: PCP Internal Medicine; Referring Provider Internal Medicine Cardiovascular Disease; Visit Provider Internal Medicine Cardiovascular Disease
DX: R00.0 Tachycardia, unspecified (principal)
CPT/HCPCS: 93016; 93017; 93018

== ENCOUNTER → 2023-09-14 10:14 | Outpatient (CLI) | payer OTHER, SELFPAY ==
[2023-07-05 06:09] VITALS: BMI 26.6
--- NOTE | 2023-09-14 | DI.MG.S_ITS ---
BILATERAL DIGITAL DIAGNOSTIC MAMMOGRAM 3D/2D WITH AUGMENTATION: 09/14/2023 CLINICAL: Left breast pain. Comparison is made to exams dated: 08/13/2022 mammogram, 06/19/2021 mammogram, 01/04/2020 mammogram, and 08/23/2018 mammogram - [facility]. Both breasts are heterogeneously dense, which may obscure small masses (category c / 51-75% glandular tissue). No significant masses, calcifications, or other findings are seen in either breast. IMPRESSION: INCOMPLETE: NEEDS ADDITIONAL IMAGING EVALUATION No mammographic evidence of malignancy. A targeted ultrasound is recommended and will immediately follow. Based on the Tyrer Cuzick model (a risk assessment model) the patient's lifetime risk is 8.4% and her 10 year risk is 2.9%. According to the ACR, ACS, and NCCN guidelines, an annual breast MRI exam along with mammogram is recommended if the patient's lifetime risk is 20% or greater. This exam was interpreted at Station ID: [id number]. NOTE: For mammograms, a report in lay terms will be sent to the patient. Approximately 15% of breast malignancies will not be visualized mammographically. In the management of a palpable breast mass, a negative mammogram must not discourage biopsy of a clinically suspicious lesion. Electronically Signed By: Cortes Jarrett M.D. slc/:09/14/2023 11:28:20 ACR BI-RADS Category 0: Incomplete [id number]
--- NOTE | 2023-09-14 10:15 | DI.US.S_ITS ---
LIMITED ULTRASOUND OF LEFT BREAST AND AXILLA: 09/14/2023 CLINICAL: Palpable left breast lump and left axilla pain. Comparison is made to exams dated: 09/14/2023 mammogram, 08/13/2022 mammogram, 06/19/2021 mammogram, 01/04/2020 ultrasound, 01/04/2020 mammogram, and 08/23/2018 ultrasound - [facility]. Color flow and real-time ultrasound of the left breast 5-6 o'clock, and axilla regions were performed. Richardson scale images of the real-time examination were reviewed. There is a 1.1 cm x 0.7 cm x 0.5 cm irregular mass with an indistinct margin in the left breast at 6 o'clock middle depth 1 cm from the nipple. This irregular mass is hypoechoic. This correlates as palpated. Color flow imaging demonstrates that there is vascularity present. There also is a 1.2 cm x 1.1 cm x 0.8 cm irregular mass with an indistinct margin in the left breast at 5 o'clock middle depth 1 cm from the nipple. This correlates as palpated. Color flow imaging demonstrates that there is vascularity present. No significant abnormalities were seen sonographically in the left axilla. IMPRESSION: SUSPICIOUS OF MALIGNANCY The 1.1 cm x 0.7 cm x 0.5 cm irregular mass in the left breast at 6 o'clock middle depth is at a low suspicion for malignancy. -Recommend ultrasound guided biopsy. The 1.2 cm x 1.1 cm x 0.8 cm irregular mass in the left breast at 5 o'clock middle depth is at a low suspicion for malignancy. -Recommend biopsy of the above described more defined lesion. The two lesions are adjacent. No enlarged left axillary lymph nodes. Exam findings were discussed with the patient by Dr. Huang. This exam was interpreted at Station ID: [id number]. Electronically Signed By: Cortes Jarrett M.D. [facility] [place]/:09/14/2023 13:19:55 letter sent: Biopsy Required Ultrasound BI-RADS: 4a Low suspicion for malignancy
== END ==
LOC: MAMMO 10:15
PROVIDERS: PCP Internal Medicine; Referring Provider Internal Medicine; Visit Provider Internal Medicine
DX: R92.2 Inconclusive mammogram (principal); N63.23 Unspecified lump in the left breast, lower outer quadrant; N63.25 Unspecified lump in the left breast, overlapping quadrants; N64.4 Mastodynia; R92.333 Mammographic heterogeneous density, bilateral breasts
CPT/HCPCS: 76642; 77066; G0279

== ENCOUNTER → 2023-09-28 14:46 | Outpatient (CLI) | payer OTHER, SELFPAY ==
[2023-07-05 06:09] VITALS: BMI 26.6
--- NOTE | 2023-09-28 | DI.US.S_ITS ---
ULTRASOUND OF LEFT BREAST: 09/28/2023 CLINICAL: Patient returns today to evaluate a focal asymmetry in the left breast. Patient came in for biopsy but unable to see mass today. Comparison is made to exams dated: 09/14/2023 ultrasound, 09/14/2023 mammogram, 08/13/2022 mammogram, and 06/19/2021 mammogram - [facility]. Real-time and Doppler ultrasound of the left breast were performed on the areas of interest. No significant abnormalities were seen sonographically in the left breast. The patient is scheduled for breast biopsy today. Ultrasound was performed in the area at the 6:00 and 5:30 of the left breast. The targeted lesion described on the last exam dated 09/14/2023 is not visualized during today's scanning. I personally scanned with the case worker. After discussing with the patient, as well as the radiologist who interpreted the last exam, I felt that the most appropriate next step is to have a short-term follow-up ultrasound in 6 months. IMPRESSION: PROBABLY BENIGN The targeted lesion for biopsy described on the last exam dated 09/14/2023 is not visualized during today's scanning. A follow-up ultrasound in 6 months is recommended. This exam was interpreted at Station ID: [id number]. Electronically Signed By: Nati Gill M.D. fx/:09/28/2023 16:08:03 letter sent: Followup Recommended Ultrasound BI-RADS: 3 Probably benign
== END ==
PROVIDERS: PCP Internal Medicine; Referring Provider Internal Medicine; Visit Provider Internal Medicine
DX: N64.4 Mastodynia (principal); R92.8 Other abnormal and inconclusive findings on diagnostic imaging of breast
CPT/HCPCS: 76642

== ENCOUNTER → 2023-10-28 06:43 | Outpatient (CLI) | payer OTHER, SELFPAY ==
[2023-07-05 06:09] VITALS: BMI 26.6
--- NOTE | 2023-10-28 06:44 | DI.US.S_ITS ---
PROCEDURE: US PELVIC COMPLETE INDICATIONS: Follow-up right ovarian cyst TECHNIQUE: Real-time scanning was performed of the pelvic organs, with image documentation. Additional endovaginal scanning was necessary due to incomplete visualization of the adnexal and endometrial structures by transabdominal scanning. COMPARISON: [facility], CT, CT ABDOMEN PELVIS W CON, 11/06/2022, 12:08. [facility], US, US PELVIC COMPLETE, 09/25/2021, 11:47. [facility], US, PELVIC COMPLETE, 12/27/2015, 9:49. [facility], US, US PELVIC COMPLETE, 07/29/2023, 15:25. FINDINGS: Uterus: Uterus is anteverted and normal in size at 6.1 x 3.9 x 6.1 cm. The myometrium is homogeneous. The endometrium measures 4 mm combined thickness. Ovaries: The right ovary measures 3.9 x 2.3 x 2.4 cm, with a calculated ovarian volume of 11.4 cc. The left ovary measures 2.1 x 1.1 x 2.3 cm, with a calculated ovarian volume of 3 cc. Complex right ovarian lesion with heterogeneous, low-level internal echogenicity measuring 2.9 x 2.0 x 2.0 cm, previously 2.9 x 1.9 x 2.0 cm on 07/29/2023, not present in 2015 or 2021. Less than 12 follicles can be seen in each ovary. No adnexal masses are seen. Other: No pathologic free abdominal or pelvic fluid. IMPRESSION: Stable right ovarian lesion compared with 07/29/2023. Given no interval resolution and indeterminate imaging characteristics by ultrasound, recommend MRI (gynecologic mass protocol). We strive to produce accurate, complete, and clear reports of imaging services. To assist us in improving patient care, this report was composed using standard report templates and voice recognition software. Therefore, it may contain abnormal punctuation, insertions and/or omissions. Occasional wrong-word or sound-alike substitutions may occur. Though we review the report and make efforts to correct it, we do recommend that the report be read carefully in proper context to recognize any text inaccuracies. Dictated by: Sudhri Rodríguez M.D. on 10/28/2023 at 9:32 Approved by: Sudhir Rodríguez M.D. on 10/28/2023 at 9:42
== END ==
PROVIDERS: PCP Internal Medicine; Referring Provider Obstetrics & Gynecology; Visit Provider Obstetrics & Gynecology
DX: N83.9 Noninflammatory disorder of ovary, fallopian tube and broad ligament, unspecified (principal); N83.209 Unspecified ovarian cyst, unspecified side
CPT/HCPCS: 76830; 76856; 93976

== ENCOUNTER 2023-12-04 06:30 | Day surgery (SDC) | payer OTHER, SELFPAY ==
[2023-07-05 06:09] VITALS: BMI 26.6
[2023-12-02 13:51] VITALS: BMI 27.9
--- NOTE | 2023-12-04 | PATH_ITS ---
[facility] Accession Number: [id number] No. of containers..04 Tissue . 01 Material submitted: . PART A: ovary - RIGHT TUBE AND OVARY PART B: endometrium - ENDOMETRIAL CURRETTINGS PART C: endocervix - ENDOCERVICAL CURETTINGS PART D: endometrium - ENDOMETRIAL POLYP . 01 Clinical history: . PER [facility] OR: CONTAINER WITH TELFA IS EMB CONTAINER WITH SOCK IS ENDOMETRIAL POLYPS JG/AG 12/07 . 01 Diagnosis: A. RIGHT TUBE AND OVARY, EXCISION: Ovary with Endometrioma (endometriotic cyst). Complete cross-section of fimbriated fallopian tube with no significant pathologic alteration. No malignancy. . B. ENDOMETRIUM, CURETTINGS: Fragment of benign endometrial polyp. Background strips of inactive glandular endometrium with associated scant stroma. No endometrioid intraepithelial neoplasia identified and no malignancy. . C. ENDOCERVIX, CURETTINGS: Scant benign endocervical epithelium. No dysplasia or malignancy. . D. ENDOMETRIAL POLYP, BIOPSY: Benign endometrial polyp. No endometrioid intraepithelial neoplasia and no malignancy. [facility] 12/11/2023 1337 Local . 01 Electronically signed: . Nadine Roberts MD, Pathologist NPI- [id number] . 01 Gross description: . A. Received in formalin with two patient identifiers and right tube and ovary, is a fimbriated fallopian tube, 3.5 x 0.6 cm, and a barroso ovary with attached disrupted cyst weighing 5 grams, and measuring 3.4 x 2.7 x 2.4 cm, and is inked blue. The tube has violaceous smooth serosa with no cysts identified, and the lumen is stellate and unremarkable. The ovarian cystic structure has a small amount of viscous hemorrhagic contents, and the internal surface is smooth with no excrescences identified. The wall ranges from 0.1 to 0.5 cm thick with the thickened area possibly distorted ovarian parenchyma. 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 A2-A7: Entire ovary and cyst. B. Received in formalin with two patient identifiers and endometrial curetting (polyps is crossed out, client confirmed the jar with Telfa is curetting), are multiple barroso to brown soft tissue fragments admixed with mucohemorrhagic material received on Telfa paper aggregating to 2.5 x 2.2 x 0.3 cm. Filtered and submitted entirely in B1. C. Received in formalin with two patient identifiers and endocervical curetting, are multiple barroso soft tissue fragments admixed with mucoid material received on Telfa paper aggregating to 1.7 x 0.9 x 0.1 cm. Filtered and submitted entirely in C1. D. Received in formalin with two patient identifiers and endometrial polyps (curettings is crossed out, client confirmed the polyp is received in sock), are multiple barroso soft tissue fragments admixed with mucoid material aggregating to 2.4 x 1.5 x 0.2 cm. Filtered and submitted entirely in D1. ([id number]) /MRV 12/08/2023 1653 Local . 01 Pathologist provided ICD-10: N84.0, N80.101 . 01 CPT . 629197, 297010, 972611, [id number] Specimen Comment: A courtesy copy of this report has been sent to [phone] Performed at: [address] [address], [place], [place] [id number] MD Kevan Martinez MD Phone: [phone]
[2023-12-04] MEDS: LACTATED RINGERS 1,000 ML 42 ML IV ×2 (06:30→09:30)
[2023-12-04 06:56] VITALS: BP 117/82; PULSE 62; RESP 17; TEMP 36.2; O2SAT 97; BMI 27.9
--- NOTE | 2023-12-04 07:41 | PM.PREOP ---
Pre-operative Note COVID-19 COVID-19 status: Not tested Interval Note History & Physical reviewed/Exam performed by Physician: Yes Changes to H&P: No
[2023-12-04] MEDS: BUPIVACAINE 0.5% (PF) 30 ML, EPINEPHrine 0.15 MG INJ (08:52)
--- NOTE | 2023-12-04 09:37 | P.OP_ITS ---
Operative Date/Time/Diagnoses Date of procedure: 12/04/23 Time of procedure: 08:00 Pre-op diagnosis: Right ovarian mass Postmenopausal bleeding thickened endometrium Post-op diagnosis: other (FABIO, endometrioma, right ovary, endometrial polyps) Procedure & Clinicians Procedure: Procedures Operation Date: 12/04/23 07:45 Actual Procedure Side Surgeon p LAPAROSCOPIC RIGHT SALPINGO-OOPHORECTOMY s HYSTEROSCOPY WITH POLYPECTOMY; DILATION AND CURRETAGE OF UTERUS Lyndon Espinal MD Indications: Saba is a 58-year-old has been experiencing intermittent vaginal bleeding since she stopped having regular menses at around age 53. In addition she has also been having intermittent right sided pelvic pain and on ultrasound in September 2018, she was found to have a right sided complex ovarian cyst: FINDINGS: Transabdominal scanning: Limited scanning through the kidneys shows no hydronephrosis. No pathologic free abdominal or pelvic fluid. Endovaginal scanning: Uterus: Uterus is normal in size at 3.7 x 4.4 x 5.9 cm. The endometrium measures 6.3 mm in combined thickness. Ovaries: Well seen bilaterally measuring up to 3.1 x 3.9 x 4.4 cm on the right and 1.8 x 1.5 x 1.2 cm on the left. The right ovary is mildly enlarged by a complex cystic structure measuring up to 2.9 x 3.2 x 4.3 cm. This contains low-level internal echoes IMPRESSION: The uterus appears normal as does the right ovary. There is a moderately large left ovarian complex cyst containing low-level internal echoes throughout. This structure should be further assessed for resolution in 6-8 weeks by pelvic ultrasound. It measures up to 4.3 x 2.9 x 3.2 cm in maximal dimension. No abnormal endometrial mass or fluid collection found. Endometrial biopsy was performed in September 2018 due to the slightly thickened endometrial stripe which showed inactive endometrium. Pap smear and HPV at the same time were negative. CA 125 and HE4 levels were also normal. She underwent a 2nd endometrial biopsy in October 2021 which was also negative for any significant cytologic abnormality. Since 2020 the patient has been on transdermal estradiol 0.05 mg daily along with micronized progesterone 200 mg HS. She has continued to have intermittent episodes of vaginal bleeding which have become more more frequent since being started recently on Xarelto due to atrial fibrillation. A follow-up ultrasound obtained 07/29/2023 shows: FINDINGS: Uterus: Uterus is retroverted and normal in size at 5.9 x 5.0 x 4.1 cm. The myometrium is heterogeneous. The endometrium measures 3 mm combined thickness. Atrophic endometrial echo complex. Ovaries: The right ovary measures 4.1 x 1.9 x 2.3 cm, with a calculated ovarian volume of 9 cc. Complex right ovarian mass with microcalcifications measuring 1.8 x 2.6 x 2.0 cm, without vascularity. The left ovary measures 1.4 x 2.3 x 1.9 cm, with a calculated ovarian volume of 3 cc. Less than 12 follicles can be seen in each ovary. Other: No pathologic free abdominal or pelvic fluid. IMPRESSION: The endometrium is normal in thickness at 3 mm. Complex right ovarian mass with microcalcifications measuring 2.6 cm. Recommend gynecology consult and short-term follow-up ultrasound in 6-12 weeks. The patient and I have had extensive discussions about potential next steps and following those discussions, the patient has opted to proceed with hysteroscopy with possible biopsies and dilation and curettage of the uterus. She is as yet undecided about possible endometrial ablation. In addition will remove the right adnexa laparoscopically but she wishes to have the left tube and ovary remain in-situ. She is currently scheduled for hysteroscopy with possible biopsies and D&C along with laparoscopic right salpingo-oophorectomy. She presents today for her scheduled surgery. Surgeon: Lyndon Espinal Anesthesia Type: General Operative Notes Findings: The uterus is normal in size and shape. The left ovary and tube also appeared normal. The right ovary is enlarged and adherent into the deep right-sided ovarian fossa as well as posterior aspect the uterine cervix. Within the right ovary is an endometrioma was ruptured during the course of salpingo oophorectomy. The appendix and the cecum appeared normal as do the liver edges and gallbladder. Closure Type: primary Specimen(s): endometrial curettings, endometrial polyp, right tube & ovary and other (Endocervical curettings) Estimated blood loss (mL): 15 Blood products transfused: none Procedure in detail: With the patient under satisfactory general anesthesia in the modified dorsal lithotomy position, the perineum, vagina, and abdomen were prepped and draped in the usual fashion for laparoscopy and hysteroscopy. A pre-surgical safety time- out was then taken in accordance with [facility] Main OR protocols. The inferior edge of the umbilicus was infiltrated with 0.5% Marcaine with epinephrine and a 2 cm vertical incision was made in the umbilicus. The dissection was carried down to the deep fascia which was grasped with Delonte clamps and incised transversely with Metzenbaum scissors. Peritoneal cavity was easily entered under direct vision with Metzenbaum scissors and a 12 mm Ahmadi cannula was then placed through the incision into the abdominal cavity with 0 Vicryl stay sutures holding the assigned in place. The abdomen was insufflated with carbon dioxide and 5 mm trocar and sleeves were then inserted in the left and right mid quadrants through which 5 mm ports reintroduced. Using a 3 puncture technique the pelvis and abdomen were carefully inspected with the findings as noted above. The right adnexa was mobilized with grasping forceps and using both sharp and blunt dissection the ovary itself was freed from the ovarian fossa. The infundibulopelvic ligament was then coagulated and divided with a power Seal device and the dissection was carried out across the mesosalpinx so as to be able to safely remove the entire right adnexa. Once the tube and ovary were removed and hemostasis was assured, an Endo-Catch was introduced through the umbilical incision and the ovary removed from the abdominal cavity inside the Endo-Catch bag. Ahmadi cannula was then replaced and the abdomen reinsufflated. Careful inspection of the pelvis revealed no areas of bleeding or other abnormality. Both ureters were seen freely peristalsing. The pneumoperitoneum was then vented and ports removed. The umbilical incision was closed with 0 Vicryl interrupted on the fascia and all 3 incisions were closed with 4-0 Monocryl using inverted interrupted stitches. Appropriate dressings were applied and attention was turned to performance of the hysteroscopy. A bivalve speculum was inserted in the vagina and the cervix visualized. The anterior lip of the cervix was grasped with a single-tooth tenaculum and the endocervical canal sequentially dilated sufficiently to allow introduction of a MyoSure scope into the endometrial cavity. The 2 endometrial polyps were seen and using a MyoSure Lite device, both polyps were removed and submitted as a separate specimen. Fractional curettage of the uterus was then accomplished using Kevorkian curette on the endocervical canal and sharp curettage of the endometrial cavity was then performed. The tenaculum was removed from the anterior lip of the cervix and a small amount of bleeding was n oted be coming from the puncture site on the left. This was easily brought under control with a long Allis clamp followed by application of silver nitrate. Once complete hemostasis was assured, the speculum was removed from the vagina, the patient was awakened from surgery, and transferred to the PACU for a period of observation and recovery after having tolerated the procedure well. Complications: none Post-operative Condition: stable Disposition: PACU Plan for aftercare: Routine postoperative care. Patient will be notified of pathology results when available.
[2023-12-04 09:43] VITALS: BP 110/59; PULSE 64; RESP 16; TEMP 36.2; O2SAT 98
[2023-12-04 09:46] VITALS: BP 110/59; PULSE 67; RESP 16; O2SAT 100
[2023-12-04 09:48] VITALS: BP 112/67; PULSE 71; RESP 16; TEMP 36.2; O2SAT 98
[2023-12-04] MEDS: OXYCODONE IR 5 MG TABLET PO ×2 (09:51→10:48)
[2023-12-04] MEDS: ONDANSETRON 4 MG/2 ML INJ IV (09:51)
[2023-12-04] MEDS: fentaNYL 100 MCG/2 ML INJ IV (09:51)
[2023-12-04 10:05] VITALS: BP 101/61; PULSE 75; RESP 16; TEMP 36.2; O2SAT 98
[2023-12-04] MEDS: ACETAMINOPHEN IV 1,000 MG/100 ML VIAL 400 MG IV (10:17)
[2023-12-04 10:57] VITALS: BP 94/64; PULSE 60; RESP 16; O2SAT 95
== END 2023-12-04 10:59 | disposition home or self-care (01) ==
PROVIDERS: PCP Internal Medicine; Referring Provider Obstetrics & Gynecology; Visit Provider Obstetrics & Gynecology
PROC: 0U5B8ZZ Destruction of Endometrium, Via Natural or Artificial Opening Endoscopic (ICD-10-PCS; CPT 58563; principal; 2023-12-04 07:45)
DX: N95.0 Postmenopausal bleeding (principal); N80.101 Endometriosis of right ovary, unspecified depth; N84.0 Polyp of corpus uteri
CPT/HCPCS: 58661; 58558; J0136; J0171; J1100; J1885; J2250; J2405; J2704; J3010; J3490

== ENCOUNTER → 2024-03-10 16:27 | Outpatient (CLI) | payer OTHER, SELFPAY ==
[2023-07-05 06:09] VITALS: BMI 26.6
--- NOTE | 2024-03-10 16:28 | DI.RAD.S_ITS ---
PROCEDURE: XR CHEST 2V INDICATIONS: cough and wheezing x 2 mos TECHNIQUE: 2 views of the chest were acquired. COMPARISON: None. FINDINGS: Heart, mediastinum and pulmonary vascular: Heart is normal in size and configuration. Mediastinum is unremarkable. Pulmonary vascular is normal. Lungs: Clear Pleural spaces: Normal-no effusions or pneumothorax. Bones and soft tissues: Normal IMPRESSION: Normal chest. Dictated by: Macario Lopez M.D. on 03/11/2024 at 8:02 Approved by: Macario Lopez M.D. on 03/11/2024 at 8:02
== END ==
PROVIDERS: PCP Internal Medicine; Referring Provider Physician Assistant; Visit Provider Physician Assistant
DX: J40 Bronchitis, not specified as acute or chronic (principal)
CPT/HCPCS: 71046

== ENCOUNTER → 2024-05-06 09:12 | Outpatient (CLI) | payer OTHER, SELFPAY ==
[2023-07-05 06:09] VITALS: BMI 26.6
--- NOTE | 2024-05-06 09:13 | DI.US.S_ITS ---
LIMITED ULTRASOUND OF LEFT BREAST: 05/06/2024 CLINICAL: Palpable left breast lump and focal pain. Comparison is made to exams dated: 09/28/2023 ultrasound, 09/14/2023 ultrasound, 09/14/2023 mammogram, 08/13/2022 mammogram, 06/19/2021 mammogram, and 01/04/2020 ultrasound - [facility]. Color flow and real-time ultrasound of the left breast 6 o'clock region were performed. Richardson scale images of the real-time examination were reviewed. There is a possible irregular mass with an indistinct margin in the left breast at 6 o'clock middle depth 1 cm from the nipple. This irregular mass is hypoechoic. This abnormality is not significantly changed and correlates as palpated and to the reported pain. Color flow imaging demonstrates that there is vascularity present. No new suspicious mass or other abnormality seen today. IMPRESSION: PROBABLY BENIGN The targeted lesion for biopsy described on the last exam dated 09/14/2023 was not visualized confidently for biopsy on 09/28/2023. Imaging observation was recommended. Today, similar sonographic finding without definitive mass seen at the 6 o'clock 1 cm from the nipple. This is probably benign. Recommend a short-term follow-up imaging with bilateral mammogram and left ultrasound in 6 months. Findings and recommendations were conveyed to the patient during today's evaluation. This exam was interpreted at Station ID: [id number]. Electronically Signed By: Fili Jo M.D. aty/:05/06/2024 11:01:55 letter sent: Followup Recommended ACR BI-RADS Category 3: Probably Benign
== END ==
PROVIDERS: PCP Internal Medicine; Referring Provider Internal Medicine; Visit Provider Internal Medicine
DX: N64.59 Other signs and symptoms in breast (principal)
CPT/HCPCS: 76642

== ENCOUNTER → 2024-11-10 08:16 | Outpatient (CLI) | payer OTHER, SELFPAY ==
[2023-07-05 06:09] VITALS: BMI 26.6
--- NOTE | 2024-11-10 08:17 | DI.US.S_ITS ---
PROCEDURE: US PELVIC COMPLETE INDICATIONS: PMB. Postmenopausal approximately 9 years. Prior right oophorectomy. TECHNIQUE: Real-time scanning was performed of the pelvic organs, with image documentation. Additional endovaginal scanning was necessary due to incomplete visualization of the adnexal and endometrial structures by transabdominal scanning. COMPARISON: [facility], , PELVIC COMPLETE, 10/28/2023, 6:55. [facility], PELVIC COMPLETE, 07/29/2023, 15:25. FINDINGS: Uterus: Uterus is retroverted and normal in size at 4.1 x 4.8 x 6.1 cm. The myometrium is homogeneous. The endometrium measures 5.0 mm combined thickness. No uterine fibroids seen. Ovaries: The right ovary is surgically absent. The left ovary measures 2.5 x 2.1 x 1.2 cm, with a calculated ovarian volume of 3.3 cc. The ovaries have a normal sonographic appearance. No adnexal masses are seen. Other: No pathologic free abdominal or pelvic fluid. IMPRESSION: Source of postmenopausal bleeding is not found. Prior right oophorectomy. Gynecological consultation is recommended if this has not yet been performed. We strive to produce accurate, complete, and clear reports of imaging services. To assist us in improving patient care, this report was composed using standard report templates and voice recognition software. Therefore, it may contain abnormal punctuation, insertions and/or omissions. Occasional wrong-word or sound-alike substitutions may occur. Though we review the report and make efforts to correct it, we do recommend that the report be read carefully in proper context to recognize any text inaccuracies. Dictated by: Jose L Montes De Oca M.D. on 11/10/2024 at 10:38 Approved by: Jose L Montes De Oca M.D. on 11/10/2024 at 10:40
== END ==
LOC: US 08:16
PROVIDERS: PCP Internal Medicine; Referring Provider Obstetrics & Gynecology; Visit Provider Obstetrics & Gynecology
DX: N95.0 Postmenopausal bleeding (principal); Z90.721 Acquired absence of ovaries, unilateral
CPT/HCPCS: 76830; 76856

== ENCOUNTER → 2024-11-24 10:33 | Outpatient (CLI) | payer OTHER, SELFPAY ==
[2023-07-05 06:09] VITALS: BMI 26.6
[2024-11-24 11:06] LABS: Add Manual Diff / Slide Review NO; Basophils Absolute Auto 0 /uL (0-100); Basophils Percent Auto 0.6 % (0-2); Eosinophils Absolute Auto 100 /uL (0-450); Eosinophils Percent Auto 2.2 % (2-4); Hematocrit 39.3 % (36-46); Hemoglobin 13.6 g/dL (12.0-16.0); Lymphocytes Absolute Auto 2100 /uL (1100-4500); Lymphocytes Percent Auto 31.6 % (25-40); Mean Corpuscular HGB Conc 34.6 % (30-36); Mean Corpuscular Hemoglobin 33.7 PG (26-34); Mean Corpuscular Volume 97.5 fL (80-100); Monocytes Absolute Auto 300 /uL (0-900); Monocytes Percent Auto 4.1 % (3-14); Neutrophils Absolute Auto 4100 /uL (1500-7000); Neutrophils Percent Auto 61.5 % (50-75); Platelet Count 236 X10^3/uL (150-400); Red Blood Cell Count 4.03 X10^6/uL (4.0-5.2); Red Cell Distribution Width 12.9 % (11.6-14.8); White Blood Cell Count 6.6 X10^3/uL (4.5-11.0)
[2024-11-24 11:33] LABS: Alanine Aminotransferase 13 IU/L (<35); Albumin 3.9 g/dL (3.5-5.0); Albumin Globulin Ratio 1.7 (1.0-2.8); Alkaline Phosphatase 52 U/L (38-126); Aspartate Aminotransferase 22 IU/L (14-36); BUN Creatinine Ratio 15.4 (6-22); Bilirubin Total 0.8 mg/dL (0.2-1.3); Blood Urea Nitrogen 12 mg/dL (7-17); Calcium 8.8 mg/dL (8.4-10.2); Carbon Dioxide 22 mmol/L (22-32); Chloride 106 mmol/L (98-107); Estimated Glomerular Filt Rate > 60 mL/min (>60); Globulin 2.3 g/dL (1.7-4.1); Glucose 95 mg/dL (70-99); HEMOLYSIS < 15 (0-50); Potassium 4.2 mmol/L (3.4-5.1); Sodium 135 mmol/L (137-145); Total Protein 6.2 g/dL (6.3-8.2)
== END ==
PROVIDERS: PCP Internal Medicine; Referring Provider Internal Medicine; Visit Provider Internal Medicine
DX: I10 Essential (primary) hypertension (principal); D64.9 Anemia, unspecified
CPT/HCPCS: 36415; 80053; 85025

== ENCOUNTER → 2025-06-02 12:39 | Outpatient (CLI) | payer OTHER, SELFPAY ==
[2023-07-05 06:09] VITALS: BMI 26.6
[2025-06-02 13:50] LABS: Add Manual Diff / Slide Review NO; Hematocrit 40.0 % (36-46); Hemoglobin 13.6 g/dL (12.0-16.0); Lymphocytes Absolute Auto 2100 /uL (1100-4500); Mean Corpuscular HGB Conc 33.9 % (30-36); Mean Corpuscular Hemoglobin 32.8 PG (26-34); Mean Corpuscular Volume 96.6 fL (80-100); Platelet Count 251 X10^3/uL (150-400)
[2025-06-02 14:20] LABS: INR 1.9 (0.9-1.3); Prothrombin Time 21.7 SECONDS (9.4-12.5)
[2025-06-02 14:29] LABS: Alanine Aminotransferase 16 IU/L (<35); Albumin 4.1 g/dL (3.5-5.0); Albumin Globulin Ratio 1.5 (1.0-2.8); Alkaline Phosphatase 62 U/L (38-126); Blood Urea Nitrogen 9 mg/dL (7-17); Calcium 9.2 mg/dL (8.4-10.2); Carbon Dioxide 21 mmol/L (22-32); Chloride 103 mmol/L (98-107); Estimated Glomerular Filt Rate > 60 mL/min (>60); Globulin 2.7 g/dL (1.7-4.1); Glucose 85 mg/dL (70-99); HEMOLYSIS < 15 (0-50); Potassium 4.4 mmol/L (3.4-5.1); Sodium 137 mmol/L (137-145); Total Protein 6.8 g/dL (6.3-8.2)
== END ==
PROVIDERS: PCP Internal Medicine; Referring Provider Internal Medicine; Visit Provider Internal Medicine
DX: I10 Essential (primary) hypertension (principal); D64.9 Anemia, unspecified
CPT/HCPCS: 36415; 80053; 85025; 85610